=== PATIENT | female | born 1955 | race Caucasian/White ===

== ENCOUNTER 2019-01-24 05:27 | Inpatient (IN) | payer OTHER ==
[2019-01-24] VITALS (21 sets, daily range): BP systolic 114–176; BP diastolic 57–103
[~2019-01-24] VITALS: Ht 154.9 cm; Wt 79.3 kg
[2019-01-24] MEDS ORDERED: NITROGLYCERIN PREMIX 250 ML IV ONE (05:45)
[2019-01-24] MEDS ORDERED: HEPARIN for IV BOLUS 10,000 UNIT/10 ML VIAL. IV ONE (05:45)
[2019-01-24] MEDS ORDERED: fentaNYL PF VIAL 100 MCG/2 ML VIAL IV ONE ×2 (05:45→06:45)
[2019-01-24] MEDS ORDERED: LIDOCAINE 1% Multi-Dose 20 ML VIAL. ONE (05:48)
[2019-01-24] MEDS ORDERED: IODIXANOL 320 MG/ML 100 ML VIAL. ONE ×2 (05:48→06:36)
[2019-01-24] MEDS ORDERED: fentaNYL PF VIAL 100 MCG/2 ML VIAL ONE (05:51)
[2019-01-24] MEDS ORDERED: MIDAZOLAM HCL/PF 2 MG/2 ML VIAL. ONE (05:51)
[2019-01-24 05:56] LABS: BASO # 0.1 x10^3/uL (0.0-0.2); BASO % 1 % (0-3); EOS # 0.2 x10^3/uL (0.0-0.7); EOS % 2 % (0-3); HEMATOCRIT 43.9 % (36.0-47.0); HEMOGLOBIN 15.3 g/dL (12.0-15.5); LYMPH # 2.5 x10^3/uL (1.0-4.8); LYMPH % 30 % (24-48); MEAN CORPUSCULAR HEMOGLOBIN 32 pg (25-35); MEAN CORPUSCULAR HGB CONC 35 g/dL (31-37); MEAN CORPUSCULAR VOLUME 91 fL (79-100); MONO # 0.6 x10^3/uL (0.0-1.1); MONO % 8 % (0-9); NEUT # 5.1 x10^3uL (1.8-7.7); NEUT % 60 % (31-73); PLATELET COUNT 146 x10^3/uL (140-400); RED BLOOD COUNT 4.82 x10^6/uL (3.50-5.40); RED CELL DISTRIBUTION WIDTH 13.7 % (11.5-14.5); WHITE BLOOD COUNT 8.4 x10^3/uL (4.0-11.0)
[2019-01-24] MEDS ORDERED: AMIODARONE 900 MG in IV DEXTROSE 5% 500 ML IV ONE (06:00)
[2019-01-24] MEDS ORDERED: AMIODARONE 150 MG in IV DEXTROSE 5% 100ML 100 ML IV ONE (06:00)
[2019-01-24] MEDS ORDERED: AMIODARONE 150 MG/3 ML VIAL IVP ONE (06:00)
--- NOTE | 2019-01-24 06:00 | PHYS DOC ---
Adult General Chief Complaint Chief Complaint: CHEST PAIN-CARDIAC NATURE HPI HPI Patient is a 63 year old F BIBA WITH SEVERE CHEST PAIN PRESSURE AND CRAMPING, SUDDEN ONSET AT FOUR AM, GAVE FENTANYL IN ER WHICH DID HELP SOME. RADIATION TO SHOULDER AND JAW AND FEELING IT IN THE BACK WAS DIAPHORETIC BP IN 160S FOR MEDICS THEY GAVE ASPIRIN AND FENTANYL. CAME FROM ORIENT HX OF STROKE, NO PRIOR HX OF SC, DOES NOT TAKE ANY OF HER MEDICATIONS. Review of Systems Review of Systems CARY BY ACUITY Current Medications Current Medications Current Medications Medications (Trade) Dose Ordered Sig/Velvet Start Time Stop Time Status Last Admin Dose Admin Fentanyl Citrate (Fentanyl 2ml Vial) 50 mcg 1X ONCE 01/24/19 05:45 01/24/19 05:46 UNV Heparin Sodium (Porcine) (Heparin Sodium) 4,000 unit 1X ONCE 01/24/19 05:45 01/24/19 05:46 UNV 01/24/19 05:42 4,000 UNIT Nitroglycerin/ Dextrose 250 ml @ 0 mls/hr 1X ONCE 01/24/19 05:45 01/24/19 05:46 UNV Allergies Allergies Allergies Uncoded Allergies Type Severity Reaction Last Updated Verified Antibiotics Adverse Reaction Intermediate "ITCHING/HIVES" 01/24/19 Physical Exam Physical Exam Constitutional: Well developed, well nourished, no acute distress, non-toxic appearance. [] HENT: Normocephalic, atraumatic, bilateral external ears normal, oropharynx mois t, no oral exudates, nose normal. [] Eyes: PERRLA, EOMI, conjunctiva normal, no discharge. [] Neck: Normal range of motion, no tenderness, supple, no stridor. [] Cardiovascular:Heart rate regular rhythm, no murmur [] Lungs & Thorax: Bilateral breath sounds clear to auscultation [] Abdomen: Bowel sounds normal, soft, no tenderness, no masses, no pulsatile masses. [] Skin: Warm, dry, no erythema, no rash. [] Back: No tenderness, no CVA tenderness. [] Extremities: No tenderness, no cyanosis, no clubbing, ROM intact, no edema. [] Neurologic: Alert and oriented X 3, normal motor function, normal sensory function, no focal deficits noted. [] Psychologic: Affect normal, judgement normal, mood normal. [] EKG EKG [] Interpretation Time: EKG FROM THE FIELD SHOWS ST ELEV INFERIOR LEADS WITH RECIPROCAL ST DEPRESSION AT THE LATERAL LEADS LARGE ST ELEV ACTIVATED STEMI AT 517 EKG AT MULTIPLE EKGS TIMED 0531, 0534, 551 ALL SHOWED VARIOUS DEGREES OF ST ELEV INFERIOR LEADS Radiology/Procedures Radiology/Procedures [] Course & Med Decision Making Course & Med Decision Making Pertinent Labs and Imaging studies reviewed. (See chart for details) STEMI INFERIOR WALL BP 200'S. []IN ER PT AT 545 AM HAD RUNS OF NONSUSTAINED VTACH, ORDERED AMIO, IT BROKE. 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 D/W CRAIG PRIOR TO THE PATIENT BEING IN THE ER AT 520 AM. 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 D/W DAUGHTER AT BEDSIDE. D/W ROJAS AT 550 Critical care time was 45 minutes exclusive of procedures. Dragon Disclaimer Dragon Disclaimer This electronic medical record was generated, in whole or in part, using a voice recognition dictation system. Departure Departure Impression: Primary Impression: STEMI (ST elevation myocardial infarction) Disposition: ADMITTED INPATIENT Admitting Physician: Aspen Garcia Condition: CRITICAL Referrals: LUIS MIGUEL MARTINEZ MD (PCP) ISAAC GILLIS MD Jan 24, 2019 06:00
[2019-01-24 06:04] LABS: PROTHROMBIN TIME PATIENT 13.5 SEC (11.7-14.0)
[2019-01-24 06:09] LABS: CREATININE 0.6 mg/dL (0.6-1.0); GFR 100.6
[2019-01-24 06:15] LABS: ALBUMIN 3.2 g/dL (3.4-5.0); TOTAL BILIRUBIN 0.4 mg/dL (0.2-1.0); TOTAL PROTEIN 6.4 g/dL (6.4-8.2)
[2019-01-24] MEDS ORDERED: BIVALIRUDIN 250 MG VIAL. IV ONE ×2 (06:17→06:45)
[2019-01-24] MEDS ORDERED: CLOPIDOGREL BISULFATE 75 MG TABLET ONE (06:36)
--- NOTE | 2019-01-24 06:41 | EKG ---
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
--- NOTE | 2019-01-24 06:42 | EKG ---
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
--- NOTE | 2019-01-24 06:42 | EKG ---
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
[2019-01-24] MEDS ORDERED: MIDAZOLAM HCL/PF 2 MG/2 ML VIAL. IV ONE (06:45)
[2019-01-24] MEDS ORDERED: NITROGLYCERIN 200 MCG/2 ML SYRINGE FOR CATH/VASC LAB. ICAR ONE (06:45)
[2019-01-24] MEDS ORDERED: IODIXANOL 320 MG/ML 100 ML VIAL. IART ONE (06:45)
[2019-01-24] MEDS ORDERED: LIDOCAINE 1% Multi-Dose 20 ML VIAL. INJ ONE (06:45)
[2019-01-24] MEDS ORDERED: IV 1/2 NORMAL SALINE 1,000 ML IV SCH (06:53)
--- NOTE | 2019-01-24 06:53 | PDOC ---
MODERATE SEDATION ASSESSMENT RISKS/ALTERNATIVES Risks/Alternatives Risks and alternatives of this type of sedation and procedure discussed with: RISK/ALTERNATIVES: Patient H & P ON CHART H & P H & P on chart and reviewed for co-morbid conditions and appropriate labs. H&P ON CHART: Yes STATUS PREG STATUS ASSESSED: N/A MEDS/ALLERGIES REVIEWED Meds/Allergies Reviewed Medications and Allergies including time and route of recently administered narcotics and sedatives. MEDS/ALLERGIES REVIEWED: Yes ASA RATING ASA RATING: III AIRWAY ASSESSMENT Airway Assessment Airway patency, oral function limitations, presence of caps, crowns, dentures, partials, and ability to extend neck assessed. AIRWAY ASSESSMENT: Yes MALLAMPATI SCORE MALLAMPATI SCORE: II PRE-SEDATION ASSESSMENT PRE-SEDATION ASSESSMENT: Yes LINDSAY SRINIVASAN MD Jan 24, 2019 06:53
--- NOTE | 2019-01-24 06:53 | PDOC2 ---
CONSULT Date of Consult Date of Consult DATE: 01/24/19 TIME: 06:53 Reason for Consult Reason for Consult: Acute myocardial infarction Referring Physician Referring Physician: Dr. Kumar Identification/Chief Complaint Chief Complaint Chest pain History of Present Illness Reason for Visit: 63-year-old female without any previous cardiac history presented with retrosternal chest pressure radiating to left shoulder and jaw, associated with diaphoresis starting at 4 AM today. The pain improved significantly with aspirin, fentanyl and nitroglycerin and was chest pain-free upon my exam. She denied any orthopnea/PND, palpitations or syncope. She was found to have recurrent episodes of nonsustained ventricular tachycardia in ED and was started on amiodarone infusion in addition to intravenous nitroglycerin infusion for elevated blood pressure. Past Medical History Cardiovascular: No pertinent hx Family History Family History Positive for coronary artery disease Social History 1 pack per day Drugs: None Current Medications Current Medications Current Medications Heparin Sodium (Porcine) (Heparin Sodium) 4,000 unit 1X ONCE IV Last administered on 01/24/19at 05:42; Start 01/24/19 at 05:45; Stop 01/24/19 at 05:50; Status DC Fentanyl Citrate (Fentanyl 2ml Vial) 50 mcg 1X ONCE IV Last administered on 01/24/19at 05:45; Start 01/24/19 at 05:45; Stop 01/24/19 at 05:50; Status DC Nitroglycerin/ Dextrose 250 ml @ 0 mls/hr 1X ONCE IV Last administered on 01/24/19at 05:48; Start 01/24/19 at 05:45; Stop 01/24/19 at 05:50; Status DC Iodixanol (Visipaque 320) 100 ml STK-MED ONCE .ROUTE ; Start 01/24/19 at 05:48; Stop 01/24/19 at 05:49; Status DC Lidocaine HCl (Lidocaine 1% 20ml Vial) 20 ml STK-MED ONCE .ROUTE ; Start 01/24/19 at 05:48; Stop 01/24/19 at 05:49; Status DC Heparin Sodium/ Sodium Chloride 500 ml @ As Directed STK-MED ONCE .ROUTE ; Start 01/24/19 at 05:48; Stop 01/24/19 at 05:49; Status DC Amiodarone HCl 900 mg/Dextrose 518 ml @ 33 mls/hr 1X ONCE IV ; Start 01/24/19 at 06:00; Stop 01/24/19 at 21:41 Fentanyl Citrate (Fentanyl 2ml Vial) 100 mcg STK-MED ONCE .ROUTE ; Start 01/24/19 at 05:51; Stop 01/24/19 at 05:52; Status DC Midazolam HCl (Versed) 2 mg STK-MED ONCE .ROUTE ; Start 01/24/19 at 05:51; Stop 01/24/19 at 05:52; Status DC Amiodarone HCl 150 mg/Dextrose 103 ml @ 618 mls/hr 1X ONCE IV ; Start 01/24/19 at 06:00; Stop 01/24/19 at 06:09; Status UNV Amiodarone HCl (Cordarone) 150 mg ONCE ONCE IVP ; Start 01/24/19 at 06:00; Stop 01/24/19 at 06:12; Status DC Bivalirudin (Angiomax) 250 mg STK-MED ONCE IV ; Start 01/24/19 at 06:17; Stop 01/24/19 at 06:18; Status DC Heparin Sodium/ Sodium Chloride (HEPARIN for ARTERIAL LINE FLUSH) 1,000 unit 1X ONCE IART ; Start 01/24/19 at 06:45; Stop 01/24/19 at 06:46; Status DC Midazolam HCl (Versed) 2 mg 1X ONCE IV ; Start 01/24/19 at 06:45; Stop 01/24/19 at 06:46; Status DC Fentanyl Citrate (Fentanyl 2ml Vial) 100 mcg 1X ONCE IV ; Start 01/24/19 at 06:45; Stop 01/24/19 at 06:46; Status DC Iodixanol (Visipaque 320) 100 ml 1X ONCE IART ; Start 01/24/19 at 06:45; Stop 01/24/19 at 06:46; Status DC Bivalirudin (Angiomax) 250 mg 1X ONCE IV ; Start 01/24/19 at 06:45; Stop 01/24/19 at 06:46; Status DC Lidocaine HCl (Lidocaine 1% 20ml Vial) 20 ml 1X ONCE INJ ; Start 01/24/19 at 06:45; Stop 01/24/19 at 06:46; Status DC Nitroglycerin (Nitroglycerin) 200 mcg 1X ONCE ICAR ; Start 01/24/19 at 06:45; Stop 01/24/19 at 06:46; Status DC Iodixanol (Visipaque 320) 100 ml STK-MED ONCE .ROUTE ; Start 01/24/19 at 06:36; Stop 01/24/19 at 06:37; Status DC Clopidogrel Bisulfate (Plavix) 75 mg STK-MED ONCE .ROUTE ; Start 01/24/19 at 06:36; Stop 01/24/19 at 06:37; Status DC Allergies Allergies: Uncoded Allergies: Antibiotics (Adverse Reaction, Intermediate, "ITCHING/HIVES", 01/24/19) ROS PSYCHOLOGICAL ROS: No: Hallucinations Eyes: No Loss of vision HEENT: No: Epistaxis Respiratory: No: Hemoptysis Cardiovascular: yes Chest Pain Gastrointestinal: No Melena Genitourinary: No Hematuria Neurological: No Seizures Skin: No Rash Physical Exam General: Alert, Oriented X3 HEENT: Atraumatic, PERRLA Lungs: Clear to auscultation Heart: Regular rate Abdomen: Soft, No tenderness Psych/Mental Status: Mood NL Vitals VITALS Vital Signs Date Time Temp Pulse Resp B/P (MAP) Pulse Ox O2 Delivery O2 Flow Rate FiO2 01/24/19 05:52 90 10 179/92 (121) 94 Nasal Cannula 3.0 01/24/19 05:27 98.5 98.5 Labs Labs Laboratory Tests Test 01/24/19 05:43 White Blood Count 8.4 x10^3/uL (4.0-11.0) Red Blood Count 4.82 x10^6/uL (3.50-5.40) Hemoglobin 15.3 g/dL (12.0-15.5) Hematocrit 43.9 % (36.0-47.0) Mean Corpuscular Volume 91 fL (79-100) Mean Corpuscular Hemoglobin 32 pg (25-35) Mean Corpuscular Hemoglobin Concent 35 g/dL (31-37) Red Cell Distribution Width 13.7 % (11.5-14.5) Platelet Count 146 x10^3/uL (140-400) Neutrophils (%) (Auto) 60 % (31-73) Lymphocytes (%) (Auto) 30 % (24-48) Monocytes (%) (Auto) 8 % (0-9) Eosinophils (%) (Auto) 2 % (0-3) Basophils (%) (Auto) 1 % (0-3) Neutrophils # (Auto) 5.1 x10^3uL (1.8-7.7) Lymphocytes # (Auto) 2.5 x10^3/uL (1.0-4.8) Monocytes # (Auto) 0.6 x10^3/uL (0.0-1.1) Eosinophils # (Auto) 0.2 x10^3/uL (0.0-0.7) Basophils # (Auto) 0.1 x10^3/uL (0.0-0.2) Prothrombin Time 13.5 SEC (11.7-14.0) Prothromb Time International Ratio 1.1 (0.8-1.1) Sodium Level 137 mmol/L (136-145) Potassium Level 4.0 mmol/L (3.5-5.1) Chloride Level 102 mmol/L (98-107) Carbon Dioxide Level 23 mmol/L (21-32) Anion Gap 12 (6-14) Blood Urea Nitrogen 14 mg/dL (7-20) Creatinine 0.6 mg/dL (0.6-1.0) Estimated GFR (Cockcroft-Gault) 100.6 BUN/Creatinine Ratio 23 (6-20) Glucose Level 379 mg/dL (70-99) Calcium Level 9.0 mg/dL (8.5-10.1) Total Bilirubin 0.4 mg/dL (0.2-1.0) Aspartate Amino Transf (AST/SGOT) 19 U/L (15-37) Alanine Aminotransferase (ALT/SGPT) 20 U/L (14-59) Alkaline Phosphatase 51 U/L (46-116) Troponin I Quantitative < 0.017 ng/mL (0.000-0.055) HU-Krz-H-Type Natriuretic Peptide 157 pg/mL (0-124) Total Protein 6.4 g/dL (6.4-8.2) Albumin 3.2 g/dL (3.4-5.0) Albumin/Globulin Ratio 1.0 (1.0-1.7) Laboratory Tests Test 01/24/19 05:43 White Blood Count 8.4 x10^3/uL (4.0-11.0) Red Blood Count 4.82 x10^6/uL (3.50-5.40) Hemoglobin 15.3 g/dL (12.0-15.5) Hematocrit 43.9 % (36.0-47.0) Mean Corpuscular Volume 91 fL (79-100) Mean Corpuscular Hemoglobin 32 pg (25-35) Mean Corpuscular Hemoglobin Concent 35 g/dL (31-37) Red Cell Distribution Width 13.7 % (11.5-14.5) Platelet Count 146 x10^3/uL (140-400) Neutrophils (%) (Auto) 60 % (31-73) Lymphocytes (%) (Auto) 30 % (24-48) Monocytes (%) (Auto) 8 % (0-9) Eosinophils (%) (Auto) 2 % (0-3) Basophils (%) (Auto) 1 % (0-3) Neutrophils # (Auto) 5.1 x10^3uL (1.8-7.7) Lymphocytes # (Auto) 2.5 x10^3/uL (1.0-4.8) Monocytes # (Auto) 0.6 x10^3/uL (0.0-1.1) Eosinophils # (Auto) 0.2 x10^3/uL (0.0-0.7) Basophils # (Auto) 0.1 x10^3/uL (0.0-0.2) Prothrombin Time 13.5 SEC (11.7-14.0) Prothromb Time International Ratio 1.1 (0.8-1.1) Sodium Level 137 mmol/L (136-145) Potassium Level 4.0 mmol/L (3.5-5.1) Chloride Level 102 mmol/L (98-107) Carbon Dioxide Level 23 mmol/L (21-32) Anion Gap 12 (6-14) Blood Urea Nitrogen 14 mg/dL (7-20) Creatinine 0.6 mg/dL (0.6-1.0) Estimated GFR (Cockcroft-Gault) 100.6 BUN/Creatinine Ratio 23 (6-20) Glucose Level 379 mg/dL (70-99) Calcium Level 9.0 mg/dL (8.5-10.1) Total Bilirubin 0.4 mg/dL (0.2-1.0) Aspartate Amino Transf (AST/SGOT) 19 U/L (15-37) Alanine Aminotransferase (ALT/SGPT) 20 U/L (14-59) Alkaline Phosphatase 51 U/L (46-116) Troponin I Quantitative < 0.017 ng/mL (0.000-0.055) MD-Uzs-M-Type Natriuretic Peptide 157 pg/mL (0-124) Total Protein 6.4 g/dL (6.4-8.2) Albumin 3.2 g/dL (3.4-5.0) Albumin/Globulin Ratio 1.0 (1.0-1.7) Assessment/Plan Assessment/Plan 1. Aborted acute inferior wall ST elevation myocardial infarction. EKG from EMS showed ST elevations in leads III and aVF. Upon presentation to the cardiac Tissue Technician, she was chest pain-free with resolution of ST elevations. Patient was given aspirin, heparin in ED. We will proceed with emergent cardiac catheterization and possible primary PCI. Risks and benefits were explained and she is agreeable. Start statins post procedure. 2. Accelerated hypertension: Start beta blockers and losartan for better control 3. Nonsustained ventricular tachycardia most probably ischemic in etiology. She is presently on amiodarone infusion. We will stop this after PCI and monitor te lemetry. Check 2-D echo to assess LV systolic function. We will also check magnesium level. Thank you for your consultation. LINDSAY SRINIVASAN MD Jan 24, 2019 06:53
[2019-01-24] MEDS ORDERED: fentaNYL PF VIAL 100 MCG/2 ML VIAL IV PRN (07:00)
[2019-01-24] MEDS ORDERED: ACETAMINOPHEN 325 MG TABLET. PO PRN (07:00)
[2019-01-24] MEDS ORDERED: CLOPIDOGREL BISULFATE 75 MG TABLET PO ONE (07:00)
--- NOTE | 2019-01-24 07:27 | CARD ---
MR#: [id number] Date of Study: 01/24/2019 Ordering Physician: LINDSAY CLEANING, Referring Physician: HARPREET XIE, Tech: RT Bethanie (R) APPROVED REPORT Technologist: RT Bethanie (R) ARETHA Nurse: Krys Negron R.N. Procedure(s) performed: 1. Left heart catheterization, selective coronary angiography and left ventr iculography 2. Successful PCI/drug eluting stent placement to the dominant left circumflex artery and balloon PT CA to the obtuse marginal branch mod sed 60 Min fluoro time 11.5 dap 123.71 Gycm2 contrast 240ml INDICATION The indication(s) include : 63-year-old female presented with chest pain and was found to have ST fina vations in lead III and aVF on initial EKG consistent with acute inferior wall ST elevation myocardia l infarction. However, on presentation to the cardiac Open Hearth Melter patient had resolution of chest pain a s well as ST elevations, consistent with aborted STEMI.. CSHA Clinical Frailty Scale CSHA Clinical Frailty Scale: Mildly Frail Heart Failure Heart Failure: No PROCEDURE NARRATIVE After explaining the risks, benefits and alternative options, informed consent was obtained from carmelita ent. Patient was brought to the cardiac Open Hearth Melter and her right groin was prepped and draped in the us ual fashion. 20 mL of 2% lidocaine was infiltrated into the skin and subcutaneous tissues for local a nesthesia. Arterial access was obtained in the right common femoral artery and a 6 Singaporean sheath was inserted. 6 Singaporean JL4 and 6 Singaporean JR4 catheters were used to perform selective angiography of the l eft and right coronary arteries. 6 Singaporean pigtail catheter was used to perform left ventriculography at the end of procedure. The following findings were noted. FINDINGS 1. Hemodynamics: Elevated left ventricular end-diastolic pressure of 37 mmHg consistent with acute diastolic heart failure. No pullback gradient across the aortic valve. 2. Left ventriculography: Inferoapical wall hypokinesis with ejection fraction estimated at 55%. No significant mitral regurgitation was seen. 3. Coronary angiography: a. The left main coronary artery arose from the left sinus of Valsalva, gave rise to the left anteri or descending and left circumflex arteries and did not show any significant stenosis. b. The left anterior descending artery showed 30% stenosis in the ostial segment. c. The left circumflex artery was a large and dominant vessel that showed 90% bifurcation lesion inv olving the mid to distal segment and origin of the third obtuse marginal branch which is a medium walter iber vessel. This is most probably the culprit lesion since patient had ST elevations during interven tion on this lesion. d. The right coronary artery was a small and nondominant vessel that showed 90% stenosis in the mids egment. INTERVENTION The left main coronary artery was engaged with a 6 Singaporean EBU 3.5 guide catheter and the stenosis in the mid to distal segment of the dominant left circumflex artery was crossed with a 0.014 inch InsureWorx Pro water guidewire. This was predilated with a 2.5 x 12 mm trek balloon following which this was suc cessfully treated with a 2.5 x 22 mm resolute anayeli drug-eluting stent. The stent struts were then analyst microbiology lab ssed into the third obtuse marginal branch and the struts and proximal segment of the obtuse marginal branch were dilated with a 2.5 x 8 mm noncompliant NC trek balloon. Follow-up angiography showed res olution of the stenosis to 0% with NELL-3 distal flow. Patient tolerated the procedure well. Hemostas is was achieved using Angio-Seal. There were no immediate complications. NELL Flow NELL Flow (Pre-Intervention): NELL-2 NELL Flow (Post-Intervention): NELL-3 Conclusion 1. 90% bifurcation lesion involving dominant left circumflex artery and third obtuse marginal branch, the culprit vessel for patient's aborted inferior wall STEMI. The right coronary artery was a small and nondominant vessel showing 90% stenosis in the midsegment. 2. Successful PCI/drug eluting stent placement to the left circumflex artery and balloon PTCA to the obtuse marginal branch. 3. Inferoapical wall hypokinesis with ejection fraction estimated at 55% Recommendations 1. Aspirin 325 mg daily 2. Plavix 75 mg daily for preferably one year 3. Cardiovascular risk factor modification including smoking cessation Signed by : Lindsay Cleaning, Electronically Approved : 01/24/2019 07:27:10
--- NOTE | 2019-01-24 08:13 | RAD ---
Examination: PORTABLE CHEST 1V History: chest pain and cough
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 Heart size and pulmonary vasculature are normal. No infiltrate or pleural effusion. No pneumothorax with the patient supine limiting assessment. No acute bony process. Impression: No active disease. Electronically signed by: Bryon Kelsey MD (01/24/2019 8:10 AM) [facility]
[2019-01-24] MEDS ORDERED: ONDANSETRON PF 4 MG/2 ML VIAL. IV PRN (08:15)
[2019-01-24] MEDS ORDERED: ONDANSETRON ODT 4 MG TAB.RAPDIS. PO PRN (08:15)
--- NOTE | 2019-01-24 08:44 | NUR ---
ADMISSION: Pt arrived to 103 @ 0720 from hemodialysis lab technician. Pt A&Ox4, SR on monitor. Angiomax and 1/2 NS infusing. Sister and and three daughters at bedside assisting pt in admission questions. See vascular assessment. Pt decided on DNR/DNI code status. Pt initially refusing cardiac medications Dr. Cleaning ordered. Dr. Cleaning spoke with pt at bedside and explained risks and benefits of medications ordered. Pt gave the okay to take the medications.
[2019-01-24] MEDS: METOPROLOL TART IMMED RELEASE 25 MG TABLET. PO SCH ×2 (08:48→21:19)
[2019-01-24] MEDS ORDERED: LOSARTAN POTASSIUM 50 MG TABLET. PO SCH (09:00)
--- NOTE | 2019-01-24 10:24 | PDOC1 ---
History and Physical Date of Admission Date of Admission DATE: 01/24/19 TIME: 10:20 Identification/Chief Complaint Chief Complaint cp Source Source: Caregiver, Chart review, Patient History of Present Illness History of Present Illness 63-year-old white female obese 35, borderline diabetic but chose not to take meds, does not take any meds at home, chest pain left-sided woke her up from sleep 4 AM. Nausea, SOA< maybe diaphoresis, STEMI on EKG. Underwent stat LHC and successful PCI/drug eluting stent placement to the dominant left circumflex artery and balloon PTCA to the obtuse marginal branch. Seen in ICU, rt groin looks good, Still weak, fuzzy on the details. Multiple fam members at bedside Past Medical History Cardiovascular: No pertinent hx Pulmonary: No pertinent hx GI: No pertinent hx Heme/Onc: No pertinent hx Hepatobiliary: No pertinent hx Psych: No pertinent hx Rheumatologic: No pertinent hx Infectious disease: No pertinent hx ENT: No pertinent hx Renal/: No pertinent hx Endocrine: No pertinent hx Dermatology: No pertinent hx Past Surgical History Past Surgical History: No pertinent history Family History Family History: Hypertension Social History Smoke: 1 pack per day ALCOHOL: none Drugs: None Current Medications Current Medications Current Medications Heparin Sodium (Porcine) (Heparin Sodium) 4,000 unit 1X ONCE IV Last administered on 01/24/19at 05:42; Start 01/24/19 at 05:45; Stop 01/24/19 at 05: 50; Status DC Fentanyl Citrate (Fentanyl 2ml Vial) 50 mcg 1X ONCE IV Last administered on 01/24/19at 05:45; Start 01/24/19 at 05:45; Stop 01/24/19 at 05:50; Status DC Nitroglycerin/ Dextrose 250 ml @ 0 mls/hr 1X ONCE IV Last administered on 01/24/19at 05:48; Start 01/24/19 at 05:45; Stop 01/24/19 at 05:50; Status DC Iodixanol (Visipaque 320) 100 ml STK-MED ONCE .ROUTE ; Start 01/24/19 at 05:48; Stop 01/24/19 at 05:49; Status DC Lidocaine HCl (Lidocaine 1% 20ml Vial) 20 ml STK-MED ONCE .ROUTE ; Start 01/24/19 at 05:48; Stop 01/24/19 at 05:49; Status DC Heparin Sodium/ Sodium Chloride 500 ml @ As Directed STK-MED ONCE .ROUTE ; Start 01/24/19 at 05:48; Stop 01/24/19 at 05:49; Status DC Amiodarone HCl 900 mg/Dextrose 518 ml @ 33 mls/hr 1X ONCE IV ; Start 01/24/19 at 06:00; Stop 01/24/19 at 06:53; Status DC Fentanyl Citrate (Fentanyl 2ml Vial) 100 mcg STK-MED ONCE .ROUTE ; Start 01/24/19 at 05:51; Stop 01/24/19 at 05:52; Status DC Midazolam HCl (Versed) 2 mg STK-MED ONCE .ROUTE ; Start 01/24/19 at 05:51; Stop 01/24/19 at 05:52; Status DC Amiodarone HCl 150 mg/Dextrose 103 ml @ 618 mls/hr 1X ONCE IV ; Start 01/24/19 at 06:00; Stop 01/24/19 at 06:09; Status UNV Amiodarone HCl (Cordarone) 150 mg ONCE ONCE IVP ; Start 01/24/19 at 06:00; Stop 01/24/19 at 06:12; Status DC Bivalirudin (Angiomax) 250 mg STK-MED ONCE IV ; Start 01/24/19 at 06:17; Stop 01/24/19 at 06:18; Status DC Heparin Sodium/ Sodium Chloride (HEPARIN for ARTERIAL LINE FLUSH) 1,000 unit 1X ONCE IART Last administered on 01/24/19at 06:53; Start 01/24/19 at 06:45; Stop 01/24/19 at 06:46; Status DC Midazolam HCl (Versed) 2 mg 1X ONCE IV Last administered on 01/24/19at 06:56; Start 01/24/19 at 06:45; Stop 01/24/19 at 06:46; Status DC Fentanyl Citrate (Fentanyl 2ml Vial) 100 mcg 1X ONCE IV Last administered on 01/24/19at 06:56; Start 01/24/19 at 06:45; Stop 01/24/19 at 06:46; Status DC Iodixanol (Visipaque 320) 100 ml 1X ONCE IART Last administered on 01/24/19at 06:53; Start 01/24/19 at 06:45; Stop 01/24/19 at 06:46; Status DC Bivalirudin (Angiomax) 250 mg 1X ONCE IV Last administered on 01/24/19at 06:56; Start 01/24/19 at 06:45; Stop 01/24/19 at 06:46; Status DC Lidocaine HCl (Lidocaine 1% 20ml Vial) 20 ml 1X ONCE INJ Last administered on 01/24/19at 06:55; Start 01/24/19 at 06:45; Stop 01/24/19 at 06:46; Status DC Nitroglycerin (Nitroglycerin) 200 mcg 1X ONCE ICAR Last administered on 01/24/19at 06:54; Start 01/24/19 at 06:45; Stop 01/24/19 at 06:46; Status DC Iodixanol (Visipaque 320) 100 ml STK-MED ONCE .ROUTE ; Start 01/24/19 at 06:36; Stop 01/24/19 at 06:37; Status DC Clopidogrel Bisulfate (Plavix) 75 mg STK-MED ONCE .ROUTE ; Start 01/24/19 at 06:36; Stop 01/24/19 at 06:37; Status DC Clopidogrel Bisulfate (Plavix) 600 mg 1X ONCE PO Last administered on 01/24/19at 06:57; Start 01/24/19 at 07:00; Stop 01/24/19 at 07:01; Status DC Sodium Chloride 1,000 ml @ 100 mls/hr Q10H IV Last administered on 01/24/19at 07:13; Start 01/24/19 at 06:53; Stop 01/24/19 at 16:52 Aspirin (Ecotrin) 325 mg DAILYWBKFT PO ; Start 01/25/19 at 08:00 Clopidogrel Bisulfate (Plavix) 75 mg DAILYWBKFT PO ; Start 01/25/19 at 08:00 Metoprolol Tartrate (Lopressor) 25 mg BID PO Last administered on 01/24/19at 08:48; Start 01/24/19 at 09:00 Losartan Potassium (Cozaar) 50 mg DAILY PO Last administered on 01/24/19at 08:48; Start 01/24/19 at 09:00 Atorvastatin Calcium (Lipitor) 40 mg QHS PO ; Start 01/24/19 at 21:00 Acetaminophen (Tylenol) 650 mg PRN Q6HRS PRN PO MILD PAIN / TEMP; Start 01/24/19 at 07:00 Fentanyl Citrate (Fentanyl 2ml Vial) 50 mcg PRN Q1HR PRN IV MODERATE OR SEVERE PAIN; Start 01/24/19 at 07:00 Ondansetron HCl (Zofran) 4 mg PRN Q6HRS PRN IV NAUSEA/VOMITING; Start 01/24/19 at 08:15 Ondansetron HCl (Zofran Odt) 4 mg PRN Q6HRS PRN PO NAUSEA/VOMITING; Start 01/24/19 at 08:15 Allergies Allergies: Coded Allergies: prednisone (Verified Allergy, Severe, 01/24/19) Uncoded Allergies: Antibiotics (Adverse Reaction, Intermediate, "ITCHING/HIVES", 01/24/19) ROS Review of System As per history of present illness, the rest of ROS 14 point negative Physical Exam General: Alert, Oriented X3, Cooperative, No acute distress HEENT: Atraumatic, PERRLA, EOMI Lungs: Clear to auscultation, Normal air movement Heart: S1S2, RRR, no thrills, no rubs, no gallops, no murmurs Cardiovascular: S1, S2 Breasts: Normal, Rt breast nml w/o mass, Lt breast nml w/o mass, Nipples normal Abdomen: Normal bowel sounds, Soft, No tenderness, No hepatosplenomegaly, No masses Rectal Exam: not examined PELVIC: Nml ext genitalia, Other (dressing right groin, dry no hematoma) Extremities: No clubbing, No cyanosis, No edema, Normal pulses, No tende rness/swelling Skin: No rashes, No breakdown, No significant lesion Neuro: Normal gait, Normal speech, Strength at 5/5 X4 ext, Normal tone, Sensation intact, Cranial nerves 3-12 NL, Reflexes 2+ Psych/Mental Status: Mental status NL, Mood NL Vitals Vitals Vital Signs Date Time Temp Pulse Resp B/P (MAP) Pulse Ox O2 Delivery O2 Flow Rate FiO2 01/24/19 09:00 86 22 126/64 (84) 93 Nasal Cannula 2.0 01/24/19 07:30 97.6 97.6 Labs Labs Laboratory Tests Test 01/24/19 05:43 01/24/19 09:05 White Blood Count 8.4 x10^3/uL (4.0-11.0) Red Blood Count 4.82 x10^6/uL (3.50-5.40) Hemoglobin 15.3 g/dL (12.0-15.5) Hematocrit 43.9 % (36.0-47.0) Mean Corpuscular Volume 91 fL (79-100) Mean Corpuscular Hemoglobin 32 pg (25-35) Mean Corpuscular Hemoglobin Concent 35 g/dL (31-37) Red Cell Distribution Width 13.7 % (11.5-14.5) Platelet Count 146 x10^3/uL (140-400) Neutrophils (%) (Auto) 60 % (31-73) Lymphocytes (%) (Auto) 30 % (24-48) Monocytes (%) (Auto) 8 % (0-9) Eosinophils (%) (Auto) 2 % (0-3) Basophils (%) (Auto) 1 % (0-3) Neutrophils # (Auto) 5.1 x10^3uL (1.8-7.7) Lymphocytes # (Auto) 2.5 x10^3/uL (1.0-4.8) Monocytes # (Auto) 0.6 x10^3/uL (0.0-1.1) Eosinophils # (Auto) 0.2 x10^3/uL (0.0-0.7) Basophils # (Auto) 0.1 x10^3/uL (0.0-0.2) Prothrombin Time 13.5 SEC (11.7-14.0) Prothromb Time International Ratio 1.1 (0.8-1.1) Sodium Level 137 mmol/L (136-145) Potassium Level 4.0 mmol/L (3.5-5.1) Chloride Level 102 mmol/L (98-107) Carbon Dioxide Level 23 mmol/L (21-32) Anion Gap 12 (6-14) Blood Urea Nitrogen 14 mg/dL (7-20) Creatinine 0.6 mg/dL (0.6-1.0) Estimated GFR (Cockcroft-Gault) 100.6 BUN/Creatinine Ratio 23 (6-20) Glucose Level 379 mg/dL (70-99) Calcium Level 9.0 mg/dL (8.5-10.1) Total Bilirubin 0.4 mg/dL (0.2-1.0) Aspartate Amino Transf (AST/SGOT) 19 U/L (15-37) Alanine Aminotransferase (ALT/SGPT) 20 U/L (14-59) Alkaline Phosphatase 51 U/L (46-116) Troponin I Quantitative < 0.017 ng/mL (0.000-0.055) 0.825 ng/mL (0.000-0.055) IH-Oqm-Q-Type Natriuretic Peptide 157 pg/mL (0-124) Total Protein 6.4 g/dL (6.4-8.2) Albumin 3.2 g/dL (3.4-5.0) Albumin/Globulin Ratio 1.0 (1.0-1.7) Laboratory Tests Test 01/24/19 05:43 01/24/19 09:05 White Blood Count 8.4 x10^3/uL (4.0-11.0) Red Blood Count 4.82 x10^6/uL (3.50-5.40) Hemoglobin 15.3 g/dL (12.0-15.5) Hematocrit 43.9 % (36.0-47.0) Mean Corpuscular Volume 91 fL (79-100) Mean Corpuscular Hemoglobin 32 pg (25-35) Mean Corpuscular Hemoglobin Concent 35 g/dL (31-37) Red Cell Distribution Width 13.7 % (11.5-14.5) Platelet Count 146 x10^3/uL (140-400) Neutrophils (%) (Auto) 60 % (31-73) Lymphocytes (%) (Auto) 30 % (24-48) Monocytes (%) (Auto) 8 % (0-9) Eosinophils (%) (Auto) 2 % (0-3) Basophils (%) (Auto) 1 % (0-3) Neutrophils # (Auto) 5.1 x10^3uL (1.8-7.7) Lymphocytes # (Auto) 2.5 x10^3/uL (1.0-4.8) Monocytes # (Auto) 0.6 x10^3/uL (0.0-1.1) Eosinophils # (Auto) 0.2 x10^3/uL (0.0-0.7) Basophils # (Auto) 0.1 x10^3/uL (0.0-0.2) Prothrombin Time 13.5 SEC (11.7-14.0) Prothromb Time International Ratio 1.1 (0.8-1.1) Sodium Level 137 mmol/L (136-145) Potassium Level 4.0 mmol/L (3.5-5.1) Chloride Level 102 mmol/L (98-107) Carbon Dioxide Level 23 mmol/L (21-32) Anion Gap 12 (6-14) Blood Urea Nitrogen 14 mg/dL (7-20) Creatinine 0.6 mg/dL (0.6-1.0) Estimated GFR (Cockcroft-Gault) 100.6 BUN/Creatinine Ratio 23 (6-20) Glucose Level 379 mg/dL (70-99) Calcium Level 9.0 mg/dL (8.5-10.1) Total Bilirubin 0.4 mg/dL (0.2-1.0) Aspartate Amino Transf (AST/SGOT) 19 U/L (15-37) Alanine Aminotransferase (ALT/SGPT) 20 U/L (14-59) Alkaline Phosphatase 51 U/L (46-116) Troponin I Quantitative < 0.017 ng/mL (0.000-0.055) 0.825 ng/mL (0.000-0.055) XL-Asa-M-Type Natriuretic Peptide 157 pg/mL (0-124) Total Protein 6.4 g/dL (6.4-8.2) Albumin 3.2 g/dL (3.4-5.0) Albumin/Globulin Ratio 1.0 (1.0-1.7) VTE Prophylaxis Ordered VTE Prophylaxis Devices: Yes VTE Pharmacological Prophylaxi: Yes Assessment/Plan Assessment/Plan stemi s/p Successful PCI/drug eluting stent placement to the dominant left circumflex artery and balloon PTCA to the obtuse marginal branch Borderline DM, no meds PLAN: ICU,. STEMI post [facility] care Lipids, check hgba1c Dw Family FULL code NO home meds to reconcile HARPREET XIE MD Jan 24, 2019 10:24
[2019-01-24] MEDS ORDERED: HYDROcodone/APAP 5/325MG 1 TAB TABLET PO PRN (10:30)
[2019-01-24] MEDS ORDERED: NICOTINE 21MG PATCH. TD PRN (10:30)
[2019-01-24 11:01] LABS: CHOLESTEROL/HDL RATIO 6.6
--- NOTE | 2019-01-24 12:09 | CARD ---
MR#: [id number] Date of Study: 01/24/2019 Ordering Physician: LINDSAY SRINIVASAN, Referring Physician: HARPREET XIE Tech: Macie Paz [facility] APPROVED REPORT EXAM: Two-dimensional and M-mode echocardiogram with Doppler and color Doppler. Other Information Quality : Good INDICATION Acute Myocardial Infarction 2D DIMENSIONS RVDd2.9 (2.9-3.5cm)Left Atrium(2D)3.6 (1.6-4.0cm) IVSd1.3 (0.7-1.1cm)Aortic Root(2D)2.5 (2.0-3.7cm) LVDd4.1 (3.9-5.9cm)LVOT Diameter2.6 (1.8-2.4cm) PWd1.2 (0.7-1.1cm)LVDs3.3 (2.5-4.0cm) FS (%) 25.0 %LVEF(%)55.0 (>50%) Aortic Valve AoV Peak Khurram.154.5cm/sAoV VTI28.1cm AO Peak GR.9.5mmHgLVOT VTI 15.99cm AO Mean GR.6mmHgAVA (VTI)3.10cm2 Mitral Valve MV E Iyipxcfd32.0cm/sMV DECEL [id number] MV A Vkfkqizd326.6cm/sE/A Ratio0.8 TDI Lateral E' P. V3.35cm/sMedial E' P. V2.45cm/s E/Lateral E'27.2E/Medial E'37.1 Tricuspid Valve TR P. Cnerixau977ds/sRAP [id number] TR Peak Gr.73biOxTBBK27zpOu Pulmonary Vein S1 Lqkrieik26.5cm/sS2 Almodtlv60.45cm/s D2 Yayhegae14.4cm/s LEFT VENTRICLE The left ventricle is normal size. There is mild concentric left ventricular hypertrophy. The left ve ntricular systolic function is normal and the ejection fraction is within normal range. The Ejection Fraction is 55-60%. There is normal LV segmental wall motion. Transmitral Doppler flow pattern is Gra de I-abnormal relaxation pattern. RIGHT VENTRICLE The right ventricle is normal size. The right ventricular systolic function is normal. ATRIA The left atrium size is normal. The right atrium size is normal. The interatrial septum is intact wit h no evidence for an atrial septal defect or patent foramen ovale as noted on 2-D or Doppler imaging. AORTIC VALVE The aortic valve is calcified but opens well. Doppler and Color Flow revealed no significant aortic r egurgitation. There is no significant aortic valvular stenosis. MITRAL VALVE The mitral valve is normal in structure and function. There is no evidence of mitral valve prolapse. There is no mitral valve stenosis. Doppler and Color-flow revealed trace to mild mitral regurgitation . TRICUSPID VALVE The tricuspid valve is normal in structure and function. Doppler and Color Flow revealed trace to mil d tricuspid regurgitation. The PA pressure was estimated at 28 mmHg. There is no tricuspid valve sten osis. PULMONIC VALVE The pulmonic valve is not well visualized. Doppler and Color Flow revealed trace pulmonic valvular re gurgitation. There is no pulmonic valvular stenosis. GREAT VESSELS The aortic root is normal in size. The ascending aorta is normal in size. The IVC is normal in size a nd collapses >50% with inspiration. PERICARDIAL EFFUSION There is no evidence of significant pericardial effusion. Critical Notification Critical Value: No <Conclusion> The left ventricular systolic function is normal and the ejection fraction is within normal range. Th e Ejection Fraction is 55-60%. There is normal LV segmental wall motion. Signed by : Rajeev Pfeiffer, Electronically Approved : 01/24/2019 12:09:13
[2019-01-24] MEDS ORDERED: DIPHENHYDRAMINE/ZINC ACETATE 2%/0.1% TOPICAL CREAM 28GM TUBE. TP PRN (19:00)
--- NOTE | 2019-01-24 20:07 | NUR ---
Provided education on MRSA and gave education from [employer]. Pt refused to take atorvastatin. She would like to talk to the doctor about side effects in the morning.
[2019-01-24] MEDS ORDERED: ATORVASTATIN CALCIUM 20 MG TABLET PO SCH (21:00)
[2019-01-24] MEDS: NYSTATIN TOPICAL POWDER 15GM BOTTLE. TP SCH (21:20)
[2019-01-25] VITALS (8 sets, daily range): BP systolic 133–170; BP diastolic 63–93
[2019-01-25 00:18] LABS: HEMOGLOBIN A1C 12.3 % (4.8-5.6)
[2019-01-25 06:00] LABS: CALCIUM 8.4 mg/dL (8.5-10.1); CREATININE 0.6 mg/dL (0.6-1.0); GFR 100.6; POTASSIUM 3.5 mmol/L (3.5-5.1)
[2019-01-25] MEDS ORDERED: ASPIRIN ENTERIC COATED 325 MG TABLET.DR. PO SCH (08:00)
[2019-01-25] MEDS ORDERED: CLOPIDOGREL BISULFATE 75 MG TABLET PO SCH (08:00)
[2019-01-25] MEDS ORDERED: glyBURIDE 1.25 MG TABLET PO SCH (08:15)
[2019-01-25] MEDS ORDERED: DEXTROSE 50% 25 GM / 50ML DISP.SYRIN. IV PRN (08:15)
[2019-01-25] MEDS ORDERED: metFORMIN 500 MG TABLET PO SCH (08:15)
[2019-01-25] MEDS: NYSTATIN TOPICAL POWDER 15GM BOTTLE. TP SCH (08:58)
[2019-01-25] MEDS: METOPROLOL TART IMMED RELEASE 25 MG TABLET. PO SCH (08:58)
[2019-01-25] MEDS ORDERED: INSULIN LISPRO 300 UNITS/3 ML INSULN.PEN. SQ SCH (09:00)
[2019-01-25] MEDS ORDERED: LOSARTAN POTASSIUM 50 MG TABLET. PO SCH (09:00)
--- NOTE | 2019-01-25 09:12 | NUR ---
IP: Pt is mrsa screen + requiring contact precautions.
--- NOTE | 2019-01-25 09:14 | PDOC ---
MARTINEZ YANG [employer] 01/25/19 0914: CARDIO Progress Notes Date and Time Date of Service 01/25/2019 Time of Evaluation 0900 Subjective Subjective: No Chest Pain, No shortness of breath, No Palpitations Vitals Vitals Vital Signs Date Time Temp Pulse Resp B/P (MAP) Pulse Ox O2 Delivery O2 Flow Rate FiO2 01/25/19 06:29 92 18 155/65 (95) 95 Room Air 01/25/19 04:27 98.1 98.1 01/24/19 18:00 2.0 Weight Weight [ ] Input and Output Intake and Output Intake and Output 01/25/19 07:00 Intake Total 620 ml Output Total 1500 ml Balance -880 ml Intake Oral 620 ml Output Urine Total 1500 ml # Voids 2 Laboratory Labs Laboratory Tests Test 01/24/19 09:05 01/24/19 11:30 01/25/19 05:00 Troponin I Quantitative 0.825 ng/mL (0.000-0.055) 3.614 ng/mL (0.000-0.055) Sodium Level 137 mmol/L (136-145) Potassium Level 3.5 mmol/L (3.5-5.1) Chloride Level 103 mmol/L (98-107) Carbon Dioxide Level 24 mmol/L (21-32) Anion Gap 10 (6-14) Blood Urea Nitrogen 12 mg/dL (7-20) Creatinine 0.6 mg/dL (0.6-1.0) Estimated GFR (Cockcroft-Gault) 100.6 Glucose Level 318 mg/dL (70-99) Calcium Level 8.4 mg/dL (8.5-10.1) Physical Exam HEENT: Neck Supple W Full Motion Chest: Symmetric LUNGS: Clear to Auscultation Heart: S1S2, RRR (SR) Extremities: No Edema, No Calf Tenderness Neurology: alert, oriented, follow commands Other Exams right groin arteriotomy site intact, no swelling, erythema, neurovascular status to bilateral LE intact. Assessment Assessment 1. Aborted acute inferior wall STEMI: S/P PCI/ANT to LCx and PTCA to OM3. EF nml. 2. Accelerated hypertension: labile periods 3. NSVT: none further post reperfusion 4. DM2: not new (was on insulin in the past and decided treat without medications) A1C. 12.3 5. HLP 6. Obesity Recommendations 1. Continue metoprolol. Increase losartan. HBPM x1 wk and call if outside parameters. 2. 325 mg ECASA and plavix 3. Lipitor. DM meds per PCP 4. Cardiac rehab. Dietitian consult 5. Follow up in office on 02/23 at 2:45 PM LINDSAY SRINIVASAN MD 01/25/197: CARDIO Progress Notes Assessment Assessment Patient seen and examined. Agree with ICE GRINDER's assessment and plan. s/p PCI/ANT to dominant LCX, chest pain free No further arrhythmias on tele. EF normal on 2D echo Continue current meds and follow up in one month MARTINEZ YANG APRN Jan 25, 2019 09:14 LINDSAY SRINIVASAN MD Jan 25, 2019 21:07
[2019-01-25] MEDS ORDERED: ATOR20TA58 PO (09:27)
[2019-01-25] MEDS ORDERED: LOSA-73 PO (09:27)
[2019-01-25] MEDS ORDERED: CLOP75TA PO (09:27)
[2019-01-25] MEDS ORDERED: HYDR-2761 PO (09:27)
[2019-01-25] MEDS ORDERED: METO25TA4 PO (09:27)
[2019-01-25] MEDS ORDERED: ASPI325T11 PO (09:27)
[2019-01-25] MEDS ORDERED: METF500T PO (09:27)
[2019-01-25] MEDS ORDERED: GLYB1.252 PO (09:27)
[2019-01-25] MEDS ORDERED: INSU100I13 SQ (09:35)
--- NOTE | 2019-01-25 09:36 | PDOC3 ---
Discharge Summary Visit Information Date of Admission: Jan 24, 2019 Date of Discharge: Jan 25, 2019 Admitting Diagnosis Comment: stemi s/p Successful PCI/drug eluting stent placement to the dominant left circumflex artery and balloon PTCA to the obtuse marginal branch Dm 2 - hgba1c 12 Brief Hospital Course Allergies Allergies Coded Allergies Type Severity Reaction Last Updated Verified prednisone Allergy Severe 01/24/19 Yes I S O L A T I O N *CONTACT* Allergy Unknown 01/25/19 Yes Uncoded Allergies Type Severity Reaction Last Updated Verified Antibiotics Adverse Reaction Intermediate "ITCHING/HIVES" 01/24/19 Vital Signs Vital Signs Date Time Temp Pulse Resp B/P (MAP) Pulse Ox O2 Delivery O2 Flow Rate FiO2 01/25/19 08:58 97 133/66 01/25/19 06:29 18 95 Room Air 01/25/19 04:27 98.1 98.1 01/24/19 18:00 2.0 Lab Results Laboratory Tests Test 01/24/19 05:43 01/24/19 07:00 01/24/19 09:05 01/24/19 11:30 White Blood Count 8.4 x10^3/uL (4.0-11.0) Red Blood Count 4.82 x10^6/uL (3.50-5.40) Hemoglobin 15.3 g/dL (12.0-15.5) Hematocrit 43.9 % (36.0-47.0) Mean Corpuscular Volume 91 fL (79-100) Mean Corpuscular Hemoglobin 32 pg (25-35) Mean Corpuscular Hemoglobin Concent 35 g/dL (31-37) Red Cell Distribution Width 13.7 % (11.5-14.5) Platelet Count 146 x10^3/uL (140-400) Neutrophils (%) (Auto) 60 % (31-73) Lymphocytes (%) (Auto) 30 % (24-48) Monocytes (%) (Auto) 8 % (0-9) Eosinophils (%) (Auto) 2 % (0-3) Basophils (%) (Auto) 1 % (0-3) Neutrophils # (Auto) 5.1 x10^3uL (1.8-7.7) Lymphocytes # (Auto) 2.5 x10^3/uL (1.0-4.8) Monocytes # (Auto) 0.6 x10^3/uL (0.0-1.1) Eosinophils # (Auto) 0.2 x10^3/uL (0.0-0.7) Basophils # (Auto) 0.1 x10^3/uL (0.0-0.2) Prothrombin Time 13.5 SEC (11.7-14.0) Prothromb Time International Ratio 1.1 (0.8-1.1) Sodium Level 137 mmol/L (136-145) Potassium Level 4.0 mmol/L (3.5-5.1) Chloride Level 102 mmol/L (98-107) Carbon Dioxide Level 23 mmol/L (21-32) Anion Gap 12 (6-14) Blood Urea Nitrogen 14 mg/dL (7-20) Creatinine 0.6 mg/dL (0.6-1.0) Estimated GFR (Cockcroft-Gault) 100.6 BUN/Creatinine Ratio 23 (6-20) Glucose Level 379 mg/dL (70-99) Hemoglobin A1c 12.3 % (4.8-5.6) Calcium Level 9.0 mg/dL (8.5-10.1) Total Bilirubin 0.4 mg/dL (0.2-1.0) Aspartate Amino Transf (AST/SGOT) 19 U/L (15-37) Alanine Aminotransferase (ALT/SGPT) 20 U/L (14-59) Alkaline Phosphatase 51 U/L (46-116) Troponin I Quantitative < 0.017 ng/mL (0.000-0.055) 0.825 ng/mL (0.000-0.055) 3.614 ng/mL (0.000-0.055) MC-Oqr-O-Type Natriuretic Peptide 157 pg/mL (0-124) Total Protein 6.4 g/dL (6.4-8.2) Albumin 3.2 g/dL (3.4-5.0) Albumin/Globulin Ratio 1.0 (1.0-1.7) Triglycerides Level 355 mg/dL (0-150) Cholesterol Level 231 mg/dL (0-200) LDL Cholesterol, Calculated 125 mg/dL (0-100) VLDL Cholesterol, Calculated 71 mg/dL (0-40) Non-HDL Cholesterol Calculated 196 mg/dL (0-129) HDL Cholesterol 35 mg/dL (40-60) Cholesterol/HDL Ratio 6.6 Nasal Screen MRSA (PCR) Positive (Negative) Test 01/25/19 05:00 Sodium Level 137 mmol/L (136-145) Potassium Level 3.5 mmol/L (3.5-5.1) Chloride Level 103 mmol/L (98-107) Carbon Dioxide Level 24 mmol/L (21-32) Anion Gap 10 (6-14) Blood Urea Nitrogen 12 mg/dL (7-20) Creatinine 0.6 mg/dL (0.6-1.0) Estimated GFR (Cockcroft-Gault) 100.6 Glucose Level 318 mg/dL (70-99) Calcium Level 8.4 mg/dL (8.5-10.1) Laboratory Tests Test 01/24/19 11:30 01/25/19 05:00 Troponin I Quantitative 3.614 ng/mL (0.000-0.055) Sodium Level 137 mmol/L (136-145) Potassium Level 3.5 mmol/L (3.5-5.1) Chloride Level 103 mmol/L (98-107) Carbon Dioxide Level 24 mmol/L (21-32) Anion Gap 10 (6-14) Blood Urea Nitrogen 12 mg/dL (7-20) Creatinine 0.6 mg/dL (0.6-1.0) Estimated GFR (Cockcroft-Gault) 100.6 Glucose Level 318 mg/dL (70-99) Calcium Level 8.4 mg/dL (8.5-10.1) Brief Hospital Course Ms. Mccullough is a 63 old female admitted for STEMI underwent successful PCI to the above. She told me she was pre diabetic but multiple calls about blood sugars 300s. A1c is 12. Now she relays to me she was supposed to be on insulin. Creatinine okay, not alcoholic. I think it would benefit her also to start metformin 500 twice a day. Lantus 20 daily at bedtime. I had heavy instructions with her about follow-up PCP 4 weeks time about her diabetes. All Rx on chart Consuls performed cards Procedures performed PCI, 01/24/19 Discharge Information Condition at Discharge: Improved, Stable Follow Up: Weeks (cards as instrcuted, PCP 4 weeks re DM) Disposition/Orders: D/C to Home Scheduled Aspirin (Aspirin Ec) 325 Mg Tablet., 325 MG PO DAILYWBKFT for stemi MDD 1, #60 Prescribed by: HARPREET XIE on 01/25/19926 Atorvastatin Calcium (Atorvastatin Calcium) 20 Mg Tablet, 40 MG PO QHS for hyperlipid MDD 1, #60 Prescribed by: HARPREET XIE on 01/25/19926 Clopidogrel Bisulfate (Clopidogrel) 75 Mg Tablet, 75 MG PO DAILYWBKFT for stemi MDD 1, #30 Prescribed by: HARPREET XIE on 01/25/19926 Glyburide (Glyburide) 1.25 Mg Tablet, 1.25 MG PO BIDWMEALS for dm 2 MDD 1, #60 Prescribed by: HARPREET XIE on 01/25/19926 Info (No Known Medications Prior To Admisstion) Each, 1 EACH 1X for n/a, (Reported) Entered as Reported by: ROZINA LYONS on 01/25/19801 Last Taken: UNKNOWN on Unknown Date & Time Last Action: New Order on 01/25/19801 by ROZINA LYONS Losartan Potassium (Cozaar ) 50 Mg Tablet, 100 MG PO DAILY for htn MDD 1, #30 Prescribed by: HARPREET XIE on 01/25/19926 Metformin Hcl (Glucophage) 500 Mg Tablet, 500 MG PO BIDWMEALS for dm2 MDD 1, #60 Prescribed by: HARPREET XIE on 01/25/19926 Metoprolol Tartrate (Metoprolol Tartrate) 25 Mg Tablet, 25 MG PO BID for stemi MDD 1, #60 Prescribed by: HARPREET XIE on 01/25/19926 Scheduled PRN Hydrocodone Bit/Acetaminophen (Hydrocodone-Apap 5-325 ) 1 Tab Tablet, 1 TAB PO PRN Q4HRS PRN for MODERATE-SEVERE PAIN MDD 1, #15 Prescribed by: HARPREET XIE on 01/25/19926 HARPREET XIE MD Jan 25, 2019 09:36
--- NOTE | 2019-01-25 11:29 | NUR ---
Discharge Note: GENA MALDONADO [facility] Discharge instructions and discharge home medications reviewed with Patient and a copy given. All questions have been answered and understanding verbalized. The following instructions and handouts were given: New medications. Follow up appointments. Discontinued lines and drains: dressings clean dry intact. See interventions. Patient discharged to home/self-care with family.
== END 2019-01-25 10:20 | disposition home or self-care (01) | DRG 246 ==
LOC: ER 05:27 → 1 WEST ICU 05:40
PROVIDERS: ADMIT Internal Medicine; ATTEND Internal Medicine
PROC: B2111ZZ Fluoroscopy of Multiple Coronary Arteries using Low Osmolar Contrast (ICD-10-PCS; principal; 2019-01-24)
PROC: 027034Z Dilation of Coronary Artery, One Artery with Drug-eluting Intraluminal Device, Percutaneous Approach (ICD-10-PCS; 2019-01-24)
PROC: 02703ZZ Dilation of Coronary Artery, One Artery, Percutaneous Approach (ICD-10-PCS; 2019-01-24)
PROC: B2151ZZ Fluoroscopy of Left Heart using Low Osmolar Contrast (ICD-10-PCS; 2019-01-24)
PROC: 4A023N7 Measurement of Cardiac Sampling and Pressure, Left Heart, Percutaneous Approach (ICD-10-PCS; 2019-01-24)
DX: I21.3 ST elevation (STEMI) myocardial infarction of unspecified site (principal); I50.31 Acute diastolic (congestive) heart failure; I47.2 Ventricular tachycardia; R73.03 Prediabetes; E66.9 Obesity, unspecified; Z68.33 Body mass index [BMI] 33.0-33.9, adult; E78.5 Hyperlipidemia, unspecified; F17.210 Nicotine dependence, cigarettes, uncomplicated; I25.2 Old myocardial infarction; Z82.49 Family history of ischemic heart disease and other diseases of the circulatory system; Z86.73 Personal history of transient ischemic attack (TIA), and cerebral infarction without residual deficits; Z88.8 Allergy status to other drugs, medicaments and biological substances; Z91.041 Radiographic dye allergy status; I11.0 Hypertensive heart disease with heart failure
CPT/HCPCS: 92920; 92928; 93458; 99291; G0269; 36415; 71045; 80048; 80053; 80061; 82962; 83036; 83880; 84484; 85025; 85610; 87641; 93005; 93306; 96374; 99152; 99153; 99406; C1725; C1760; C1769; C1874; C1887; C1892; J0282; J0583; J1644; J1815; J2250; J3010; J3490; Q9967; C1771

== ENCOUNTER 2019-07-14 11:01 | Inpatient (IN) | payer MEDICARE, MEDICAID ==
[~2019-07-14] VITALS: Ht 154.9 cm; Wt 82.8 kg
[~2019-07-14 11:01] MED LIST: ASPI325T11 PO; ATOR20TA58 PO; CLOP75TA PO; GLYB1.252 PO; HYDR-2761 PO; INSU100I13 SQ; LOSA-73 PO; METF500T PO; METO25TA4 PO
--- NOTE | 2019-07-14 13:43 | NUR ---
Patient arrived to room 263 at 1343 from [place]. Patient very tired, family helped with admission questions. The patient, GENA MALDONADO, 64 y/o, F admitted by FIFI TRUONG MD, was given written information regarding hospital policies, unit procedures and contact persons. Valuables were checked and noted. Will continue to monitor.
[2019-07-14 13:45] VITALS: BP 156/68
--- NOTE | 2019-07-14 14:10 | PDOC1 ---
History and Physical Date of Admission Date of Admission DATE: 07/14/19 TIME: 14:10 Identification/Chief Complaint Chief Complaint transfer from [facility] in [place] with angina, was admitted last night, and refused work-up at that facility, desired to be transported here per records reviewed Past Medical History Past Medical History Past Medical History Cardiovascular: CAD STENT Pulmonary: No pertinent hx GI: No pertinent hx Heme/Onc: No pertinent hx Hepatobiliary: No pertinent hx Psych: No pertinent hx Rheumatologic: No pertinent hx Infectious disease: No pertinent hx ENT: No pertinent hx Renal/: No pertinent hx Endocrine: No pertinent hx Dermatology: No pertinent hx Past Surgical History Past Surgical History: No pertinent history Family History Family History: Hypertension Social History Smoke: 1 pack per day ALCOHOL: none Drugs: None Cardiovascular: No pertinent hx, HTN Pulmonary: No pertinent hx GI: No pertinent hx Heme/Onc: No pertinent hx Hepatobiliary: No pertinent hx Psych: No pertinent hx Musculoskeletal: Osteoarthritis Rheumatologic: No pertinent hx Infectious disease: No pertinent hx Renal/: No pertinent hx Endocrine: No pertinent hx Past Surgical History Past Surgical History: No pertinent history Family History Family History: Chronic Bronchitis, Hypertension Social History Smoke: 1 pack per day ALCOHOL: none Drugs: None Current Medications Current Medications Active Scripts Active Lantus Solostar (Insulin Glargine,Hum.rec.anlog) 100 Unit/1 Ml Insuln.pen 20 Unit SQ QHS Glucophage (Metformin Hcl) 500 Mg Tablet 500 Mg PO BIDWMEALS MDD 1 Hydrocodone-Apap 5-325 (Hydrocodone Bit/Acetaminophen) 1 Tab Tablet 1 Tab PO PRN Q4HRS PRN MDD 1 Cozaar (Losartan Potassium) 50 Mg Tablet 100 Mg PO DAILY MDD 1 Aspirin Ec (Aspirin) 325 Mg Tablet.dr 325 Mg PO DAILYWBKFT MDD 1 Metoprolol Tartrate 25 Mg Tablet 25 Mg PO BID MDD 1 Atorvastatin Calcium 20 Mg Tablet 40 Mg PO QHS MDD 1 Clopidogrel (Clopidogrel Bisulfate) 75 Mg Tablet 75 Mg PO DAILYWBKFT MDD 1 Allergies Allergies: Coded Allergies: prednisone (Verified Allergy, Severe, 01/24/19) I S O L A T I O N *CONTACT* (Verified Allergy, Unknown, 01/25/19) mrsa Uncoded Allergies: Antibiotics (Adverse Reaction, Intermediate, "ITCHING/HIVES", 01/24/19) ROS Review of System 14 pt ros otherwise neg General: YES: Fatigue PSYCHOLOGICAL ROS: YES: Anxiety; No: Behavioral Disorder, Concentration difficultie, Decreased libido, Depres stacy, Disorientation, Hallucinations, Hostility, Irritablity, Memory difficulties, Mood Swings, Obsessive thoughts, Physical abuse, Sexual abuse, Sleep disturbances, Suicidal ideation, Other Eyes: No Blurry vision, No Decreased vision, No Double vision, No Dry eyes, No Excessive tearing, No Eye Pain, No Itchy Eyes, No Loss of vision, No Photophobia, No Scotomata, No Uses contacts, No Uses glasses, No Other ALLERGY AND IMMUNOLOGY: No: Hives, Insect Bite Sensitivity, Itchy/Watery Eyes, Nasal Congestion, Post Nasal Drip, Seasonal Allergies, Other Hematological and Lymphatic: No: Bleeding Problems, Blood Clots, Blood Transfusions, Brusing, Night Sweats, Pallor, Swollen Lymph Nodes, Other Respiratory: YES: Pleuritic Pain, Shortness of breath; No: Cough, Hemoptysis, Orthopnea, SOB with excertion, Sputum Changes, Stridor, Tachypnea, Wheezing, Other Cardiovascular: yes Chest Pain Gastrointestinal: No Nausea, No Vomiting, No Abdominal Pain, No Diarrhea, No Constipation, No Melena, No Hematochezia, No Other Genitourinary: No Dysuria, No Frequency, No Incontinence, No Hematuria, No Retention, No Discharge, No Urgency, No Pain, No Flank Pain, No Other, No , No , No , No , No , No , No Musculoskeletal: Yes Joint Stiffness; No Gait Disturbance, No Joint Pain, No Joint Swelling, No Muscle Pain, No Muscular Weakness, No Pain In:, No Swelling In:, No Other Skin: Yes Dry Skin Physical Exam General: Alert, Oriented X3, Cooperative, No acute distress HEENT: Atraumatic, PERRLA, Mucous membr. moist/pink Lungs: Clear to auscultation, Normal air movement Heart: RRR Breasts: Not examined Abdomen: Normal bowel sounds, Soft, No hepatosplenomegaly, No masses Rectal Exam: not examined PELVIC: Examination not indicated Extremities: No cyanosis Neuro: Normal speech, Sensation intact, Cranial nerves 3-12 NL Psych/Mental Status: Mental status NL, Mood NL Images Images APPROVED REPORT Technologist: Katy Oh, RT (R) Nurse: Krys Negron R.N. Procedure(s) performed: 1. Left heart catheterization, selective coronary angiography and left ventriculography 2. Successful PCI/drug eluting stent placement to the dominant left circumflex artery and balloon PTCA to the obtuse marginal branch mod sed 60 Min fluoro time 11.5 dap 123.71 Gycm2 contrast 240ml INDICATION The indication(s) include : 63-year-old female presented with chest pain and was found to have ST elevations in lead III and aVF on initial EKG consistent with acute inferior wall ST elevation myocardial infarction. However, on presentation to the cardiac Cad Developer patient had resolution of chest pain as well as ST elevations, consistent with aborted STEMI.. [facility] Clinical Frailty Scale [facility] Clinical Frailty Scale: Mildly Frail Heart Failure Heart Failure: No PROCEDURE NARRATIVE After explaining the risks, benefits and alternative options, informed consent was obtained from patient. Patient was brought to the cardiac Cad Developer and her right groin was prepped and draped in the usual fashion. 20 mL of 2% lidocaine was infiltrated into the skin and subcutaneous tissues for local anesthesia. Arterial access was obtained in the right common femoral artery and a 6 Syrian sheath was inserted. 6 Syrian JL4 and 6 Syrian JR4 catheters were used to perform selective angiography of the left and right coronary arteries. 6 Syrian pigtail catheter was used to perform left ventriculography at the end of procedure. The following findings were noted. FINDINGS 1. Hemodynamics: Elevated left ventricular end-diastolic pressure of 37 mmHg consistent with acute diastolic heart failure. No pullback gradient across the aortic valve. 2. Left ventriculography: Inferoapical wall hypokinesis with ejection fraction estimated at 55%. No significant mitral regurgitation was seen. 3. Coronary angiography: a. The left main coronary artery arose from the left sinus of Valsalva, gave rise to the left anterior descending and left circumflex arteries and did not show any significant stenosis. b. The left anterior descending artery showed 30% stenosis in the ostial segment. c. The left circumflex artery was a large and dominant vessel that showed 90% bifurcation lesion involving the mid to distal segment and origin of the third obtuse marginal branch which is a medium caliber vessel. This is most probably the culprit lesion since patient had ST elevations during intervention on this lesion. d. The right coronary artery was a small and nondominant vessel that showed 90% stenosis in the midsegment. INTERVENTION The left main coronary artery was engaged with a 6 Syrian EBU 3.5 guide catheter and the stenosis in the mid to distal segment of the dominant left circumflex artery was crossed with a 0.014 inch [employer] Pro water guidewire. This was predilated with a 2.5 x 12 mm trek balloon following which this was successfully treated with a 2.5 x 22 mm resolute anayeli drug-eluting stent. The stent struts were then crossed into the third obtuse marginal branch and the struts and proximal segment of the obtuse marginal branch were dilated with a 2.5 x 8 mm noncompliant NC trek balloon. Follow-up angiography showed resolution of the stenosis to 0% with NELL-3 distal flow. Patient tolerated the procedure well. Hemostasis was achieved using Angio-Seal. There were no immediate complications. NELL Flow NELL Flow (Pre-Intervention): NELL-2 NELL Flow (Post-Intervention): NELL-3 Conclusion 1. 90% bifurcation lesion involving dominant left circumflex artery and third obtuse marginal branch, the culprit vessel for patient's aborted inferior wall STEMI. The right coronary artery was a small and nondominant vessel showing 90% stenosis in the midsegment. 2. Successful PCI/drug eluting stent placement to the left circumflex artery and balloon PTCA to the obtuse marginal branch. 3. Inferoapical wall hypokinesis with ejection fraction estimated at 55% Recommendations 1. Aspirin 325 mg daily 2. Plavix 75 mg daily for preferably one year 3. Cardiovascular risk factor modification including smoking cessation Signed by : Lindsay Cleaning, Electronically Approved : 01/24/2019 07:27:10 DICTATED and SIGNED BY: LINDSAY CLEANING MD DATE: 01/24/19 0727 VTE Prophylaxis Ordered VTE Prophylaxis Devices: No VTE Pharmacological Prophylaxi: Yes Assessment/Plan Assessment/Plan IMPRESSION 1. ANGINA with HX CAD stemi s/p Successful PCI/drug eluting stent placement to the dominant left circumflex artery and balloon PTCA to the obtuse marginal branch 01/20 2. 01/20 HX 90% bifurcation lesion involving dominant left circumflex artery and third obtuse marginal branch, the culprit vessel for patient's aborted inferior wall STEMI. The right coronary artery was a small and nondominant vessel showed 90% stenosis in the midsegment. 3. Successful PCI/drug eluting stent placement to the left circumflex artery and balloon PTCA to the obtuse marginal branch. 01/20 4. Inferoapical wall hypokinesis with ejection fraction estimated at 55% 5, copd 6. tobacco abuse disorder, still smokes ppd PLAN CONSULT CARDIOLOGY [facility] BED home meds echo dvt prophylaxis admit 61 min pt exam, chart review , > 50% of time spent with exam, chart review, pt care coordination FIFI TRUONG MD Jul 14, 2019 14:10
[2019-07-14] MEDS ORDERED: HYDROcodone/APAP 5/325MG 1 TAB TABLET PO PRN (14:15)
[2019-07-14] MEDS ORDERED: guaiFENesin ORAL 200 MG/10 ML LIQUID. PO PRN (14:30)
[2019-07-14] MEDS ORDERED: 0.9 % SODIUM CHLORIDE 10 ML DISP.SYRIN. IV PRN (14:30)
[2019-07-14] MEDS ORDERED: DOCUSATE SODIUM 100 MG CAPSULE. PO PRN (14:30)
[2019-07-14] MEDS ORDERED: LORazepam 0.5 MG TABLET PO PRN (14:30)
[2019-07-14] MEDS ORDERED: cloNIDine HCL 0.1 MG TABLET PO PRN (14:30)
[2019-07-14] MEDS ORDERED: ONDANSETRON PF 4 MG/2 ML VIAL. IV PRN (14:30)
[2019-07-14] MEDS ORDERED: ACETAMINOPHEN 325 MG TABLET. PO PRN (14:30)
[2019-07-14 15:00] VITALS: BP 126/60
[2019-07-14] MEDS ORDERED: ENOXAPARIN 40 MG/0.4 ML SYRINGE. SQ SCH (15:00)
[2019-07-14] MEDS ORDERED: ATOR20TA58 PO (15:29)
[2019-07-14] MEDS ORDERED: INSU100I17 SQ (15:33)
[2019-07-14] MEDS ORDERED: CLON1TAB12 PO (15:33)
[2019-07-14 15:47] LABS: BASO # 0.1 x10^3/uL (0.0-0.2); BASO % 1 % (0-3); EOS # 0.3 x10^3/uL (0.0-0.7); EOS % 4 % (0-3); HEMATOCRIT 43.7 % (36.0-47.0); HEMOGLOBIN 15.2 g/dL (12.0-15.5); LYMPH # 2.3 x10^3/uL (1.0-4.8); LYMPH % 32 % (24-48); MEAN CORPUSCULAR HEMOGLOBIN 32 pg (25-35); MEAN CORPUSCULAR HGB CONC 35 g/dL (31-37); MEAN CORPUSCULAR VOLUME 92 fL (79-100); MONO # 0.6 x10^3/uL (0.0-1.1); MONO % 9 % (0-9); NEUT # 3.9 x10^3/uL (1.8-7.7); NEUT % 55 % (31-73); PLATELET COUNT 145 x10^3/uL (140-400); RED BLOOD COUNT 4.77 x10^6/uL (3.50-5.40); RED CELL DISTRIBUTION WIDTH 13.7 % (11.5-14.5); WHITE BLOOD COUNT 7.1 x10^3/uL (4.0-11.0)
--- NOTE | 2019-07-14 16:03 | PDOC2 ---
CONSULT Date of Consult Date of Consult DATE: 07/14/19 TIME: 16:02 Reason for Consult Reason for Consult: Chest pain Referring Physician Referring Physician: Dr. Georges Identification/Chief Complaint Chief Complaint Facial pain Source Source: Chart review, Patient History of Present Illness Reason for Visit: 64-year-old female with history of coronary artery disease s/p PCI/ANT to dominant LCx and PTCA to OM in January 2019 initially presented to [facility] complaining of right-sided facial pain and mild retrosternal chest pain not related to exertion or food intake. She was apparently more concerned about the right sided facial pain. She denied any orthopnea/PND, palpitations or syncope. Patient stopped taking all her medications except insulin 1 month after her angioplasty. The importance of dual antiplatelet therapy was reemphasized more recently during office visit with me but patient declined any medications for spiritual reasons. Past Medical History Cardiovascular: No pertinent hx, HTN Pulmonary: No pertinent hx GI: No pertinent hx Heme/Onc: No pertinent hx Hepatobiliary: No pertinent hx Psych: No pertinent hx Musculoskeletal: Osteoarthritis Rheumatologic: No pertinent hx Infectious disease: No pertinent hx Renal/: No pertinent hx Endocrine: No pertinent hx Past Surgical History Past Surgical History: No pertinent history Family History Family History: Chronic Bronchitis, Hypertension Social History 1 pack per day ALCOHOL: none Drugs: None Current Medications Current Medications Current Medications Aspirin (Ecotrin) 325 mg DAILYWBKFT PO ; Start 07/15/19 at 08:00 Atorvastatin Calcium (Lipitor) 40 mg QHS PO ; Start 07/14/19 at 21:00 Clopidogrel Bisulfate (Plavix) 75 mg DAILYWBKFT PO ; Start 07/15/19 at 08:00 Acetaminophen/ Hydrocodone Bitart (Lortab 5/325) 1 tab PRN Q4HRS PRN PO MODERATE-SEVERE PAIN; Start 07/14/19 at 14:15 Losartan Potassium (Cozaar) 100 mg DAILY PO ; Start 07/15/19 at 09:00 Metformin HCl (Glucophage) 500 mg BIDWMEALS PO ; Start 07/14/19 at 17:00 Metoprolol Tartrate (Lopressor) 25 mg BID PO ; Start 07/14/19 at 21:00 Insulin Glargine (Lantus Syringe) 20 unit QHS SQ ; Start 07/14/19 at 21:00 Sodium Chloride (Normal Saline Flush) 3 ml QSHIFT PRN IV AFTER MEDS AND BLOOD DRAWS; Start 07/14/19 at 14:30 Ondansetron HCl (Zofran) 4 mg PRN Q4HRS PRN IV NAUSEA/VOMITING; Start 07/14/19 at 14:30 Acetaminophen (Tylenol) 650 mg PRN Q4HRS PRN PO TEMP OVER 100.4F OR MILD PAIN; Start 07/14/19 at 14:30 Clonidine HCl (Catapres) 0.1 mg PRN Q6HRS PRN PO SBP>160 OR DBP>90; Start 07/14/19 at 14:30 Docusate Sodium (Colace) 100 mg PRN BID PRN PO CONSTIPATION; Start 07/14/19 at 14:30 Guaifenesin (Robitussin) 200 mg PRN Q4HRS PRN PO COUGH; Start 07/14/19 at 14:30 Lorazepam (Ativan) 0.5 mg PRN Q4HRS PRN PO ANXIETY / AGITATION; Start 07/14/19 at 14:30 Enoxaparin Sodium (Lovenox 40mg Syringe) 40 mg Q24H SQ ; Start 07/14/19 at 15:00 Albuterol/ Ipratropium (Duoneb) 3 ml RTQID NEB ; Start 07/14/19 at 16:00 Active Scripts Active Lantus Solostar (Insulin Glargine,Hum.rec.anlog) 100 Unit/1 Ml Insuln.pen 20 Unit SQ QHS Hydrocodone-Apap 5-325 (Hydrocodone Bit/Acetaminophen) 1 Tab Tablet 1 Tab PO PRN Q4HRS PRN MDD 1 Cozaar (Losartan Potassium) 50 Mg Tablet 100 Mg PO DAILY MDD 1 Aspirin Ec (Aspirin) 325 Mg Tablet.dr 325 Mg PO DAILYWBKFT MDD 1 Metoprolol Tartrate 25 Mg Tablet 25 Mg PO BID MDD 1 Clopidogrel (Clopidogrel Bisulfate) 75 Mg Tablet 75 Mg PO DAILYWBKFT MDD 1 Reported Clonazepam 1 Mg Tablet 1 Mg PO PRN Q12HR PRN Novolog Flexpen (Insulin Aspart) 100 Unit/1 Ml Insuln.pen 20 Units SQ TIDWMEALS Atorvastatin Calcium 20 Mg Tablet 20 Mg PO HS Allergies Allergies: Coded Allergies: prednisone (Verified Allergy, Severe, 01/24/19) Penicillins (Verified Allergy, Intermediate, HIVES, ITCHING, 07/14/19) cephalexin (Verified Allergy, Intermediate, HIVES, ITCHING, 07/14/19) diphenhydramine (Verified Allergy, Intermediate, 07/14/19) I S O L A T I O N *CONTACT* (Verified Allergy, Unknown, 01/25/19) mrsa ROS PSYCHOLOGICAL ROS: No: Hallucinations Eyes: No Loss of vision HEENT: No: Epistaxis Respiratory: No: Hemoptysis Cardiovascular: yes Chest Pain Gastrointestinal: No Vomiting, No Diarrhea Genitourinary: No Incontinence Neurological: Yes Headaches; No Seizures Skin: No Rash Physical Exam General: Alert, Oriented X3 HEENT: Atraumatic Lungs: Clear to auscultation Heart: Regular rate Abdomen: Soft Extremities: No edema Psych/Mental Status: Mood NL Labs Labs Laboratory Tests Test 07/14/19 15:30 White Blood Count 7.1 x10^3/uL (4.0-11.0) Red Blood Count 4.77 x10^6/uL (3.50-5.40) Hemoglobin 15.2 g/dL (12.0-15.5) Hematocrit 43.7 % (36.0-47.0) Mean Corpuscular Volume 92 fL (79-100) Mean Corpuscular Hemoglobin 32 pg (25-35) Mean Corpuscular Hemoglobin Concent 35 g/dL (31-37) Red Cell Distribution Width 13.7 % (11.5-14.5) Platelet Count 145 x10^3/uL (140-400) Neutrophils (%) (Auto) 55 % (31-73) Lymphocytes (%) (Auto) 32 % (24-48) Monocytes (%) (Auto) 9 % (0-9) Eosinophils (%) (Auto) 4 % (0-3) Basophils (%) (Auto) 1 % (0-3) Neutrophils # (Auto) 3.9 x10^3/uL (1.8-7.7) Lymphocytes # (Auto) 2.3 x10^3/uL (1.0-4.8) Monocytes # (Auto) 0.6 x10^3/uL (0.0-1.1) Eosinophils # (Auto) 0.3 x10^3/uL (0.0-0.7) Basophils # (Auto) 0.1 x10^3/uL (0.0-0.2) Laboratory Tests Test 07/14/19 15:30 White Blood Count 7.1 x10^3/uL (4.0-11.0) Red Blood Count 4.77 x10^6/uL (3.50-5.40) Hemoglobin 15.2 g/dL (12.0-15.5) Hematocrit 43.7 % (36.0-47.0) Mean Corpuscular Volume 92 fL (79-100) Mean Corpuscular Hemoglobin 32 pg (25-35) Mean Corpuscular Hemoglobin Concent 35 g/dL (31-37) Red Cell Distribution Width 13.7 % (11.5-14.5) Platelet Count 145 x10^3/uL (140-400) Neutrophils (%) (Auto) 55 % (31-73) Lymphocytes (%) (Auto) 32 % (24-48) Monocytes (%) (Auto) 9 % (0-9) Eosinophils (%) (Auto) 4 % (0-3) Basophils (%) (Auto) 1 % (0-3) Neutrophils # (Auto) 3.9 x10^3/uL (1.8-7.7) Lymphocytes # (Auto) 2.3 x10^3/uL (1.0-4.8) Monocytes # (Auto) 0.6 x10^3/uL (0.0-1.1) Eosinophils # (Auto) 0.3 x10^3/uL (0.0-0.7) Basophils # (Auto) 0.1 x10^3/uL (0.0-0.2) Assessment/Plan Assessment/Plan 1. Chest pain with atypical features and right-sided facial pain. Patient has history of CAD and had undergone PCI/ANT to dominant LCx and PTCA to OM in January 2019. Left ventricle systolic function was normal on 2-D echo at that time. Myocardial infarction has been ruled out based on EKG and 3 sets of cardiac enzymes (two from [facility] and one from [facility]). Patient stopped taking all her medications except insulin 1 month after her angioplasty as stated above due to spiritual reasons but is presently more amenable to taking medications. We will resume aspirin, Plavix and statins. We will consider outpatient ischemic evaluation with Lexiscan nuclear stress test. 2. Hypertension: Elevated on admission but is presently better controlled. 3. Hyperlipidemia: Statins 4. Diabetes mellitus type 2: Treat per IM 5. COPD: Clinically stable Thank you for your consultation. Follow-up with our office in 1 month. LINDSAY SRINIVASAN MD Jul 14, 2019 16:03
[2019-07-14 16:06] LABS: ALBUMIN 3.5 g/dL (3.4-5.0); ALBUMIN/GLOBULIN RATIO 1.1 (1.0-1.7); CALCIUM 8.8 mg/dL (8.5-10.1); CREATININE 0.6 mg/dL (0.6-1.0); GFR 100.3; TOTAL BILIRUBIN 0.5 mg/dL (0.2-1.0); TOTAL PROTEIN 6.6 g/dL (6.4-8.2)
--- NOTE | 2019-07-14 16:38 | RAD ---
EXAM: Chest CT without intravenous contrast. HISTORY: Chest pain. TECHNIQUE: Computed tomographic images of the chest were obtained without contrast. Multiplanar reformatting was performed. *One or more of the following individualized dose reduction techniques were utilized for this examination: 1. Automated exposure control. 2. Adjustment of the mA and/or kV according to patient size. 3. Use of iterative reconstruction technique. COMPARISON: Chest radiograph dated 01/24/2019. FINDINGS: The heart is normal in size. The aorta is normal in caliber. There is a common origin of the right innominate and left common carotid arteries, a normal arch branching variant. There is aortic, aortic branch vessel and coronary artery atherosclerosis with calcified plaque. There are nonspecific mediastinal and hilar lymph nodes, some which are calcified and consistent with healed granulomatous disease. There is mild emphysema with slight central bronchial wall thickening suggesting the sequela of bronchitis. There are tiny nodular and groundglass opacities within the right greater than left lower lobe which may be infectious or inflammatory. There is a 12 mm nodule within the lateral right lower lobe. There is a calcified granuloma within the lingula. There are granulomas within the spleen. There is colonic diverticulosis. The upper abdomen is otherwise unremarkable. There is no suspicious osseous lesion. IMPRESSION: 1. Scattered tiny nodular and groundglass opacities within the right greater than left lower lobes, likely infectious or inflammatory in etiology. This is superimposed on mild emphysema and bronchial wall thickening suggesting the sequela of bronchitis. No consolidated infiltrate is seen. 2. 12 mm solid noncalcified nodule within the right lower lobe. In the absence of prior studies to assess for interval change, this is within limits in size for assessment with PET/CT. 3. Prominent mediastinal and hilar lymph nodes, possibly reactive in etiology. Fleischner Society recommendations (Radiology 2017): SOLID NODULES Solitary solid nodule <6 mm - low-risk patient: no routine follow-up required - high-risk patient: optional CT at 12 months (particularly with suspicious nodule morphology and/or upper lobe location) Solitary solid nodule 6-8 mm - low-risk patient: CT at 6-12 months, then consider CT at 18-24 months - high risk patient: CT at 6-12 months, then if persistent CT at 18-24 months Solitary solid nodule >8 mm - consider CT at 3 months, PET/CT, or tissue sampling Multiple solid nodules <6 mm - low-risk patient: no routine follow-up required - high-risk patient: optional CT at 12 months Multiple solid nodules >6 mm - low-risk patient: CT at 3-6 months, then consider CT at 18-24 months - high risk patient: CT at 3-6 months, then if persistent CT at 18-24 months SUBSOLID NODULES Solitary ground glass nodule <6 mm - no routine follow-up required Solitary ground glass nodule > or = 6 mm - CT at 6-12 months, then if persistent CT every 2 years until 5 years Solitary part solid nodule > or = 6mm - CT at 3-4 months, the if persistent and solid component remains <6 mm, annual CT until 5 years Multiple subsolid nodules <6 mm - CT at 3-6 months, then if stable consider CT at 2 and 4 years in high risk patients Multiple subsolid nodules > or = 6 mm - CT at 3-6 months, then subsequent management based on the most suspicious nodule(s) Electronically signed by: Char Padgett MD (07/14/2019 4:35 PM) [place] [id number]
[2019-07-14] MEDS: IPRATRPIUM/ALBUTEROL 0.5/2.5MG 3 ML NEBU. NEB SCH ×2 (16:49→20:10)
[2019-07-14] MEDS ORDERED: metFORMIN 500 MG TABLET PO SCH (17:00)
[2019-07-14] MEDS ORDERED: CLONAZEPAM 1 MG PO PRN (17:15)
[2019-07-14] MEDS ORDERED: INSULIN REGULAR 100 UNIT/ML 3ML VIAL. IV SCH (17:15)
[2019-07-14] MEDS ORDERED: DEXTROSE 50% 25 GM / 50ML DISP.SYRIN. IV PRN (17:30)
[2019-07-14] MEDS: INSULIN LISPRO 300 UNITS/3 ML VIAL. SQ SCH (18:26)
[2019-07-14 19:00] VITALS: BP 135/60
[2019-07-14] MEDS ORDERED: INSULIN GLARGINE SYRINGE. SQ SCH (21:00)
[2019-07-14] MEDS ORDERED: ATORVASTATIN CALCIUM 20 MG TABLET PO SCH ×2 (21:00)
[2019-07-14] MEDS: METOPROLOL TART IMMED RELEASE 25 MG TABLET. PO SCH (21:22)
[2019-07-14 22:56] VITALS: BP 110/53
[2019-07-15 03:00] VITALS: BP 122/58
[2019-07-15 07:00] VITALS: BP 154/79
[2019-07-15] MEDS ORDERED: ASPIRIN ENTERIC COATED 325 MG TABLET.DR. PO SCH (08:00)
[2019-07-15] MEDS ORDERED: CLOPIDOGREL BISULFATE 75 MG TABLET PO SCH (08:00)
[2019-07-15 08:51] VITALS: BP 154/79
[2019-07-15] MEDS: METOPROLOL TART IMMED RELEASE 25 MG TABLET. PO SCH (08:51)
[2019-07-15] MEDS: INSULIN LISPRO 300 UNITS/3 ML VIAL. SQ SCH (08:55)
[2019-07-15] MEDS ORDERED: LOSARTAN POTASSIUM 50 MG TABLET. PO SCH (09:00)
[2019-07-15] MEDS: IPRATRPIUM/ALBUTEROL 0.5/2.5MG 3 ML NEBU. NEB SCH (09:16)
--- NOTE | 2019-07-15 10:44 | PDOC ---
[employer] PROGRESS NOTE Chief Complaint Chief Complaint Facial pain Chest pain History of Present Illness History of Present Illness 07/15/19 Pt was seen and examined at bedside Was worried about facial pain due to previous history of heart attack No chest pain today Troponin: 0.017 Wants to go home Charts and labs reviewed DW RN Vitals/I&O Vitals/I&O: Vital Signs Date Time Temp Pulse Resp B/P (MAP) Pulse Ox O2 Delivery O2 Flow Rate FiO2 07/15/19 09:17 92 Room Air 07/15/19 08:51 83 154/79 07/15/19 07:00 97.9 18 97.9 I & O 07/14/19 07/14/19 07/15/19 15:00 23:00 07:00 Intake Total 50 ml Balance 50 ml Physical Exam General: Alert, Oriented X3, Cooperative, No acute distress Heart: Regular rate Lungs: Clear Abdomen: Soft Extremities: No clubbing, No cyanosis, No edema Skin: No rashes, No breakdown Labs Labs: Laboratory Tests Test 07/14/19 15:30 07/14/19 17:11 07/14/19 20:50 07/15/19 08:05 White Blood Count 7.1 x10^3/uL (4.0-11.0) Red Blood Count 4.77 x10^6/uL (3.50-5.40) Hemoglobin 15.2 g/dL (12.0-15.5) Hematocrit 43.7 % (36.0-47.0) Mean Corpuscular Volume 92 fL (79-100) Mean Corpuscular Hemoglobin 32 pg (25-35) Mean Corpuscular Hemoglobin Concent 35 g/dL (31-37) Red Cell Distribution Width 13.7 % (11.5-14.5) Platelet Count 145 x10^3/uL (140-400) Neutrophils (%) (Auto) 55 % (31-73) Lymphocytes (%) (Auto) 32 % (24-48) Monocytes (%) (Auto) 9 % (0-9) Eosinophils (%) (Auto) 4 % (0-3) Basophils (%) (Auto) 1 % (0-3) Neutrophils # (Auto) 3.9 x10^3/uL (1.8-7.7) Lymphocytes # (Auto) 2.3 x10^3/uL (1.0-4.8) Monocytes # (Auto) 0.6 x10^3/uL (0.0-1.1) Eosinophils # (Auto) 0.3 x10^3/uL (0.0-0.7) Basophils # (Auto) 0.1 x10^3/uL (0.0-0.2) Sodium Level 143 mmol/L (136-145) Potassium Level 4.0 mmol/L (3.5-5.1) Chloride Level 107 mmol/L (98-107) Carbon Dioxide Level 27 mmol/L (21-32) Anion Gap 9 (6-14) Blood Urea Nitrogen 16 mg/dL (7-20) Creatinine 0.6 mg/dL (0.6-1.0) Estimated GFR (Cockcroft-Gault) 100.3 BUN/Creatinine Ratio 27 (6-20) Glucose Level 236 mg/dL (70-99) Calcium Level 8.8 mg/dL (8.5-10.1) Total Bilirubin 0.5 mg/dL (0.2-1.0) Aspartate Amino Transf (AST/SGOT) 19 U/L (15-37) Alanine Aminotransferase (ALT/SGPT) 24 U/L (14-59) Alkaline Phosphatase 60 U/L (46-116) Troponin I Quantitative < 0.017 ng/mL (0.000-0.055) Total Protein 6.6 g/dL (6.4-8.2) Albumin 3.5 g/dL (3.4-5.0) Albumin/Globulin Ratio 1.1 (1.0-1.7) Glucose (Fingerstick) 231 mg/dL (70-99) 274 mg/dL (70-99) 191 mg/dL (70-99) Review of Systems Review of Systems: No headache, no changes in vision No nausea, no vomiting Assessment and Plan Assessmemt and Plan Assessment Atypical angina Hyperlipidemia Hypertension Plan Cardiac monitoring Resume home meds Continue aspirin, plavix, statins Follow up with cardiology in one month D/C today Comment Review of Relevant I have reviewed the following items genesis (where applicable) has been applied. Medications: Current Medications Medications (Trade) Dose Ordered Sig/Velvet Route PRN Reason Start Time Stop Time Status Last Admin Dose Admin Aspirin (Ecotrin) 325 mg DAILYWBKFT PO 07/15/19 08:00 07/15/19 08:51 Clopidogrel Bisulfate (Plavix) 75 mg DAILYWBKFT PO 07/15/19 08:00 07/15/19 08:51 Losartan Potassium (Cozaar) 100 mg DAILY PO 07/15/19 09:00 07/15/19 08:51 Metoprolol Tartrate (Lopressor) 25 mg BID PO 07/14/19 21:00 07/15/19 08:51 Insulin Glargine (Lantus Syringe) 20 unit QHS SQ 07/14/19 21:00 07/14/19 21:28 Enoxaparin Sodium (Lovenox 40mg Syringe) 40 mg Q24H SQ 07/14/19 15:00 07/14/19 17:49 Albuterol/ Ipratropium (Duoneb) 3 ml RTQID NEB 07/14/19 16:00 07/15/19 09:16 Atorvastatin Calcium (Lipitor) 20 mg HS PO 07/14/19 21:00 07/14/19 21:22 Insulin Human Lispro (HumaLOG) 20 units TIDWMEALS SQ 07/14/19 18:15 07/15/19 08:55 JUJU DHILLON III DO Jul 15, 2019 10:44
--- NOTE | 2019-07-15 12:27 | NUR ---
Discharge Note: WILLIAM MALDONADO Discharge instructions and discharge home medications reviewed with Patient and a copy given. All questions have been answered and understanding verbalized. Instructions and handouts. Discontinued lines and drains. Patient discharged to home self care.
[2019-07-29] MEDS ORDERED: ACET325T9 PO (14:33)
[2019-07-29] MEDS ORDERED: DOCU100C28 PO (14:33)
[2019-07-29] MEDS ORDERED: CALC200T23 PO (14:33)
[2019-07-29] MEDS ORDERED: IBUP-1027 PO (14:33)
[2019-07-29] MEDS ORDERED: NITR0.4T24 SL (14:33)
== END 2019-07-15 12:30 | disposition home or self-care (01) | DRG 303 ==
LOC: 2 SOUTH 13:48
PROVIDERS: ADMIT Family Medicine; ATTEND Family Medicine
DX: I25.119 Atherosclerotic heart disease of native coronary artery with unspecified angina pectoris (principal); E11.9 Type 2 diabetes mellitus without complications; E78.5 Hyperlipidemia, unspecified; F17.210 Nicotine dependence, cigarettes, uncomplicated; I10 Essential (primary) hypertension; I25.2 Old myocardial infarction; J43.9 Emphysema, unspecified; K57.30 Diverticulosis of large intestine without perforation or abscess without bleeding; M19.90 Unspecified osteoarthritis, unspecified site; Z82.49 Family history of ischemic heart disease and other diseases of the circulatory system; Z82.5 Family history of asthma and other chronic lower respiratory diseases; Z91.14 Patient's other noncompliance with medication regimen; Z98.61 Coronary angioplasty status; Z88.8 Allergy status to other drugs, medicaments and biological substances; Z91.041 Radiographic dye allergy status
CPT/HCPCS: 36415; 71250; 80053; 82962; 84484; 85025; 87641; 94640; 99406; J1650; J1815; J7620; G0378

== ENCOUNTER 2019-07-28 18:45 | Inpatient (IN) | payer MEDICARE, MEDICAID ==
[~2019-07-28] VITALS: Ht 154.9 cm; Wt 80.7 kg
[~2019-07-28 18:45] MED LIST changes: +CLON1TAB12 PO; +INSU100I17 SQ
[2019-07-28] MEDS ORDERED: ACETAMINOPHEN 325 MG TABLET. PO PRN (19:00)
[2019-07-28] MEDS ORDERED: BISACODYL 10 MG SUPP.RECT. PR PRN (19:00)
[2019-07-28] MEDS ORDERED: oxyCODONE IR 5 MG TABLET PO PRN (19:00)
[2019-07-28] MEDS ORDERED: DEXTROSE 50% 25 GM / 50ML DISP.SYRIN. IV PRN (19:00)
[2019-07-28] MEDS ORDERED: ONDANSETRON PF 4 MG/2 ML VIAL. IV PRN (19:00)
[2019-07-28] MEDS ORDERED: HYDROcodone/APAP 5/325MG 1 TAB TABLET PO PRN (19:00)
[2019-07-28] MEDS ORDERED: ZOLPIDEM 5 MG TABLET. PO PRN (19:00)
[2019-07-28] MEDS ORDERED: LABETALOL 20 MG/4 ML DISP.SYRIN. IVP PRN (19:00)
[2019-07-28] MEDS ORDERED: MORPHINE SULFATE 2 MG/ML VIAL. IV PRN (19:00)
[2019-07-28] MEDS ORDERED: MAG HYDROX/ALUMINUM HYD/SIMETH 30 ML ORAL.SUSP PO PRN (19:00)
[2019-07-28] MEDS ORDERED: NITROGLYCERIN SUBLINGUAL 0.4 MG BOTTLE OF 25. SL PRN (19:00)
[2019-07-28] MEDS ORDERED: traMADol 50 MG TABLET PO PRN (19:00)
[2019-07-28] MEDS ORDERED: MAGNESIUM HYDROXIDE 2,400 MG/30 ML ORAL.SUSP. PO PRN (19:00)
[2019-07-28] MEDS ORDERED: fentaNYL PF VIAL 100 MCG/2 ML VIAL IVP PRN (19:00)
[2019-07-28] MEDS ORDERED: hydrALAZINE 20 MG/ML VIAL. IVP PRN (19:00)
[2019-07-28] MEDS ORDERED: IBUPROFEN 400 MG TABLET. PO PRN (19:00)
[2019-07-28] MEDS ORDERED: CALCIUM CARBONATE 500 MG TAB.CHEW PO PRN (19:00)
[2019-07-28] MEDS ORDERED: clonazePAM 0.5 MG TABLET PO PRN (19:15)
--- NOTE | 2019-07-28 19:24 | PDOC1 ---
History and Physical Date of Admission Date of Admission DATE: 07/28/19 TIME: 19:20 Identification/Chief Complaint Chief Complaint CP at rest, known CAD Source Source: Caregiver, Chart review, Patient History of Present Illness History of Present Illness Transfer from [facility], CP at rest in an adult, left sided, becoming more frequent and longer, left sided, intermittent, no signif soa or diaphoresis. TRop 0.03 there, transferred here for cards. Known pt Dr Ham, 1 stent? yrs ago, claims compliance with meds, NTG and fentanyl helped thae pain, Claims was supposed to have LHC or MPI done but was lost to ff up. VS ok, SBP 150s, high side, Dw dtr at bedside, FULL CODE< on plavoix.,statin etc as home meds and i have renewed/ Past Medical History Cardiovascular: No pertinent hx, CAD, HTN, Hyperlipidemia Pulmonary: No pertinent hx GI: No pertinent hx Heme/Onc: No pertinent hx Hepatobiliary: No pertinent hx Psych: No pertinent hx, Anxiety Musculoskeletal: Osteoarthritis Rheumatologic: No pertinent hx Infectious disease: No pertinent hx Renal/: No pertinent hx Endocrine: No pertinent hx, Diabetes Past Surgical History Past Surgical History: Other (PCI x 1), No pertinent history Family History Family History: Chronic Bronchitis, Hypertension Social History Smoke: No ALCOHOL: none Drugs: None Current Medications Current Medications Current Medications Ondansetron HCl (Zofran) 4 mg PRN Q6HRS PRN IV NAUSEA/VOMITING; Start 07/28/19 at 19:00 Al Hydroxide/Mg Hydroxide (Mylanta Plus Xs) 30 ml PRN Q3HRS PRN PO HEARTBURN / GAS; Start 07/28/19 at 19:00 Calcium Carbonate/ Glycine (Tums) 500 mg PRN Q3HRS PRN PO UPSET STOMACH; Start 07/28/19 at 19:00 Zolpidem Tartrate (Ambien) 5 mg PRN QHS PRN PO INSOMNIA, MAY REPEAT IN 1HR; Start 07/28/19 at 19:00 Oxycodone HCl (Roxicodone) 5 mg PRN Q3HRS PRN PO BREAKTHROUGH PAIN; Start 07/28/19 at 19:00 Morphine Sulfate (Morphine Sulfate) 1 mg PRN Q1HR PRN IV MODERATE PAIN; Start 07/28/19 at 19:00 Acetaminophen (Tylenol) 650 mg PRN Q6HRS PRN PO Headaches, Temp > 101.5F; Start 07/28/19 at 19:00 Ibuprofen (Motrin) 400 mg PRN Q6HRS PRN PO MILD PAIN 1-3; Start 07/28/19 at 19:00 Docusate Sodium (Colace) 100 mg BID PO ; Start 07/28/19 at 21:00 Magnesium Hydroxide (Milk Of Magnesia) 2,400 mg PRN Q12HR PRN PO CONSTIPATION; Start 07/28/19 at 19:00 Bisacodyl (Dulcolax Supp) 10 mg PRN DAILY PRN SD CONSTIPATION; Start 07/28/19 at 19:00 Nitroglycerin (Nitrostat) 0.4 mg PRN Q5MIN PRN SL CHEST PAIN; Start 07/28/19 at 19:00 Labetalol HCl (Normodyne Iv Push) 10 mg PRN Q2HR PRN IVP HYPERTENSION; Start 07/28/19 at 19:00 Hydralazine HCl (Apresoline Inj) 10 mg PRN Q4HRS PRN IVP ELEVATED BP, 2ND CHOICE; Start 07/28/19 at 19:00 Tramadol HCl (Ultram) 50 mg PRN Q6HRS PRN PO MODERATE PAIN; Start 07/28/19 at 19:00 Fentanyl Citrate (Fentanyl 2ml Vial) 50 mcg PRN Q2HR PRN IVP SEVERE PAIN; Start 07/28/19 at 19:00 Aspirin (Ecotrin) 325 mg DAILYWBKFT PO ; Start 07/29/19 at 08:00 Atorvastatin Calcium (Lipitor) 20 mg HS PO ; Start 07/28/19 at 21:00 Clopidogrel Bisulfate (Plavix) 75 mg DAILYWBKFT PO ; Start 07/29/19 at 08:00 Acetaminophen/ Hydrocodone Bitart (Lortab 5/325) 1 tab PRN Q4HRS PRN PO SEVERE PAIN; Start 07/28/19 at 19:00 Losartan Potassium (Cozaar) 100 mg DAILY PO ; Start 07/29/19 at 09:00 Metoprolol Tartrate (Lopressor) 25 mg BID PO ; Start 07/28/19 at 21:00 Clonazepam (KlonoPIN) 1 mg PRN Q12HRS PRN PO ANXIETY / AGITATION; Start 10/25/19 at 19:15 Insulin Human Lispro (HumaLOG) 20 units TIDWMEALS SQ ; Start 07/29/19 at 08:00 Insulin Glargine (Lantus Syringe) 20 unit QHS SQ ; Start 07/28/19 at 21:00 Insulin Human Lispro (HumaLOG) 0-9 UNITS TIDWMEALS SQ ; Start 07/29/19 at 08:00 Dextrose (Dextrose 50%-Water Syringe) 12.5 gm PRN Q15MIN PRN IV SEE COMMENTS; Start 07/28/19 at 19:00 Active Scripts Active Lantus Solostar (Insulin Glargine,Hum.rec.anlog) 100 Unit/1 Ml Insuln.pen 20 Unit SQ QHS Hydrocodone-Apap 5-325 (Hydrocodone Bit/Acetaminophen) 1 Tab Tablet 1 Tab PO PRN Q4HRS PRN MDD 1 Cozaar (Losartan Potassium) 50 Mg Tablet 100 Mg PO DAILY MDD 1 Aspirin Ec (Aspirin) 325 Mg Tablet.dr 325 Mg PO DAILYWBKFT MDD 1 Metoprolol Tartrate 25 Mg Tablet 25 Mg PO BID MDD 1 Clopidogrel (Clopidogrel Bisulfate) 75 Mg Tablet 75 Mg PO DAILYWBKFT MDD 1 Reported Clonazepam 1 Mg Tablet 1 Mg PO PRN Q12HR PRN Novolog Flexpen (Insulin Aspart) 100 Unit/1 Ml Insuln.pen 20 Units SQ TIDWMEALS Atorvastatin Calcium 20 Mg Tablet 20 Mg PO HS Allergies Allergies: Coded Allergies: prednisone (Verified Allergy, Severe, 01/24/19) Penicillins (Verified Allergy, Intermediate, HIVES, ITCHING, 07/14/19) cephalexin (Verified Allergy, Intermediate, HIVES, ITCHING, 07/14/19) diphenhydramine (Verified Allergy, Intermediate, 07/14/19) I S O L A T I O N *CONTACT* (Verified Allergy, Unknown, 01/25/19) mrsa ROS Review of System as per HPI, all else neg 14 pt Physical Exam General: Alert, Oriented X3, Cooperative, No acute distress HEENT: Atraumatic, PERRLA, EOMI Lungs: Clear to auscultation, Normal air movement Heart: S1S2, RRR, no thrills, no rubs, no gallops, no murmurs Cardiovascular: S1, S2 Breasts: Normal, Rt breast nml w/o mass, Lt breast nml w/o mass, Nipples normal Abdomen: Normal bowel sounds, Soft, No tenderness, No hepatosplenomegaly, No masses Rectal Exam: not examined PELVIC: Nml ext genitalia Extremities: No clubbing, No cyanosis, No edema, Normal pulses, No tenderness/swelling Skin: No rashes, No breakdown, No significant lesion Neuro: Normal gait, Normal speech, Strength at 5/5 X4 ext, Normal tone, Sensation intact, Cranial nerves 3-12 NL, Reflexes 2+ Psych/Mental Status: Mental status NL, Mood NL VTE Prophylaxis Ordered VTE Prophylaxis Devices: Yes VTE Pharmacological Prophylaxi: Yes Assessment/Plan Assessment/Plan CP in an adult at rest Trop 0/.03 - cushings legends Obesity HTN, DM 2, lipids etc - chronic stable 1 CAD indwelling stent PLAN: CVC bed Cards, trend CE Resume home meds NPO post MN incase MPI etc FULL CODE dw dtr HARPREET SAUNDERS MD Jul 28, 2019 19:24
[2019-07-28] MEDS: METOPROLOL TART IMMED RELEASE 25 MG TABLET. PO SCH (20:18)
[2019-07-28 20:27] VITALS: BP 99/59
[2019-07-28] MEDS ORDERED: ATORVASTATIN CALCIUM 20 MG TABLET PO SCH (21:00)
[2019-07-28] MEDS: DOCUSATE SODIUM 100 MG CAPSULE. PO SCH (21:00)
[2019-07-28] MEDS ORDERED: INSULIN GLARGINE SYRINGE. SQ SCH (21:00)
[2019-07-28 23:16] VITALS: BP 116/67
[2019-07-29 03:30] VITALS: BP 126/70
[2019-07-29 05:25] LABS: BASO % 1 % (0-3); EOS # 0.2 x10^3/uL (0.0-0.7); EOS % 4 % (0-3); HEMATOCRIT 41.1 % (36.0-47.0); HEMOGLOBIN 13.9 g/dL (12.0-15.5); LYMPH % 45 % (24-48); MEAN CORPUSCULAR HEMOGLOBIN 31 pg (25-35); MEAN CORPUSCULAR HGB CONC 34 g/dL (31-37); MEAN CORPUSCULAR VOLUME 92 fL (79-100); MONO # 0.6 x10^3/uL (0.0-1.1); MONO % 8 % (0-9); NEUT # 2.8 x10^3/uL (1.8-7.7); NEUT % 42 % (31-73); PLATELET COUNT 176 x10^3/uL (140-400); RED BLOOD COUNT 4.46 x10^6/uL (3.50-5.40); RED CELL DISTRIBUTION WIDTH 13.6 % (11.5-14.5); WHITE BLOOD COUNT 6.7 x10^3/uL (4.0-11.0)
[2019-07-29 05:46] LABS: CALCIUM 8.6 mg/dL (8.5-10.1); CREATININE 0.6 mg/dL (0.6-1.0); GFR 100.3; POTASSIUM 3.9 mmol/L (3.5-5.1)
[2019-07-29 06:07] LABS: PROTHROMBIN TIME PATIENT 12.7 SEC (11.7-14.0)
[2019-07-29 07:00] VITALS: BP 84/56
[2019-07-29] MEDS: INSULIN LISPRO 300 UNITS/3 ML VIAL. SQ SCH ×4 (08:00→12:05)
[2019-07-29] MEDS ORDERED: ASPIRIN ENTERIC COATED 325 MG TABLET.DR. PO SCH (08:00)
[2019-07-29] MEDS ORDERED: CLOPIDOGREL BISULFATE 75 MG TABLET PO SCH (08:00)
[2019-07-29] MEDS ORDERED: FLU VAX QS 2019-20 (36MOS+)/PF 0.5 ML SYRINGE. VAX IM ONE (09:00)
[2019-07-29] MEDS ORDERED: LOSARTAN POTASSIUM 50 MG TABLET. PO SCH (09:00)
--- NOTE | 2019-07-29 09:03 | PDOC ---
PROGRESS NOTES History of Present Illness History of Present Illness VTE Prophylaxis Ordered VTE Prophylaxis Devices: Yes VTE Pharmacological Prophylaxi: Yes discharge dx Chest pain Trop 0/.03 - cushings legends Obesity HTN, DM 2, lipids etc - chronic stable 1 CAD indwelling stent PLAN: CVC bed Cards, trend CE Resume home meds NPO post MN FULL CODE cardiology ok with d/c today, out pt stress test planned per cardiology d/c planning 22 min Vitals Vitals Vital Signs Date Time Temp Pulse Resp B/P (MAP) Pulse Ox O2 Delivery O2 Flow Rate FiO2 07/29/19 03:30 97.7 85 18 126/70 (88) 94 Room Air 97.7 Physical Exam General: Alert, Oriented X3, Cooperative, No acute distress Lungs: Clear Abdomen: Normal bowel sounds, Soft, No tenderness, No hepatosplenomegaly, No masses Extremities: No clubbing, No cyanosis, No edema, Normal pulses, No tenderness/swelling Skin: No rashes, No breakdown, No significant lesion Labs LABS Laboratory Tests Test 07/28/19 20:57 07/29/19 04:30 Glucose (Fingerstick) 317 mg/dL (70-99) White Blood Count 6.7 x10^3/uL (4.0-11.0) Red Blood Count 4.46 x10^6/uL (3.50-5.40) Hemoglobin 13.9 g/dL (12.0-15.5) Hematocrit 41.1 % (36.0-47.0) Mean Corpuscular Volume 92 fL (79-100) Mean Corpuscular Hemoglobin 31 pg (25-35) Mean Corpuscular Hemoglobin Concent 34 g/dL (31-37) Red Cell Distribution Width 13.6 % (11.5-14.5) Platelet Count 176 x10^3/uL (140-400) Neutrophils (%) (Auto) 42 % (31-73) Lymphocytes (%) (Auto) 45 % (24-48) Monocytes (%) (Auto) 8 % (0-9) Eosinophils (%) (Auto) 4 % (0-3) Basophils (%) (Auto) 1 % (0-3) Neutrophils # (Auto) 2.8 x10^3/uL (1.8-7.7) Lymphocytes # (Auto) 3.0 x10^3/uL (1.0-4.8) Monocytes # (Auto) 0.6 x10^3/uL (0.0-1.1) Eosinophils # (Auto) 0.2 x10^3/uL (0.0-0.7) Basophils # (Auto) 0.0 x10^3/uL (0.0-0.2) Prothrombin Time 12.7 SEC (11.7-14.0) Prothromb Time International Ratio 1.0 (0.8-1.1) Sodium Level 144 mmol/L (136-145) Potassium Level 3.9 mmol/L (3.5-5.1) Chloride Level 108 mmol/L (98-107) Carbon Dioxide Level 28 mmol/L (21-32) Anion Gap 8 (6-14) Blood Urea Nitrogen 15 mg/dL (7-20) Creatinine 0.6 mg/dL (0.6-1.0) Estimated GFR (Cockcroft-Gault) 100.3 Glucose Level 195 mg/dL (70-99) Calcium Level 8.6 mg/dL (8.5-10.1) Comment Review of Relevant I have reviewed the following items genesis (where applicable) has been applied. Labs Laboratory Tests Test 07/28/19 20:57 07/29/19 04:30 Glucose (Fingerstick) 317 mg/dL (70-99) White Blood Count 6.7 x10^3/uL (4.0-11.0) Red Blood Count 4.46 x10^6/uL (3.50-5.40) Hemoglobin 13.9 g/dL (12.0-15.5) Hematocrit 41.1 % (36.0-47.0) Mean Corpuscular Volume 92 fL (79-100) Mean Corpuscular Hemoglobin 31 pg (25-35) Mean Corpuscular Hemoglobin Concent 34 g/dL (31-37) Red Cell Distribution Width 13.6 % (11.5-14.5) Platelet Count 176 x10^3/uL (140-400) Neutrophils (%) (Auto) 42 % (31-73) Lymphocytes (%) (Auto) 45 % (24-48) Monocytes (%) (Auto) 8 % (0-9) Eosinophils (%) (Auto) 4 % (0-3) Basophils (%) (Auto) 1 % (0-3) Neutrophils # (Auto) 2.8 x10^3/uL (1.8-7.7) Lymphocytes # (Auto) 3.0 x10^3/uL (1.0-4.8) Monocytes # (Auto) 0.6 x10^3/uL (0.0-1.1) Eosinophils # (Auto) 0.2 x10^3/uL (0.0-0.7) Basophils # (Auto) 0.0 x10^3/uL (0.0-0.2) Prothrombin Time 12.7 SEC (11.7-14.0) Prothromb Time International Ratio 1.0 (0.8-1.1) Sodium Level 144 mmol/L (136-145) Potassium Level 3.9 mmol/L (3.5-5.1) Chloride Level 108 mmol/L (98-107) Carbon Dioxide Level 28 mmol/L (21-32) Anion Gap 8 (6-14) Blood Urea Nitrogen 15 mg/dL (7-20) Creatinine 0.6 mg/dL (0.6-1.0) Estimated GFR (Cockcroft-Gault) 100.3 Glucose Level 195 mg/dL (70-99) Calcium Level 8.6 mg/dL (8.5-10.1) Laboratory Tests Test 07/28/19 20:57 07/29/19 04:30 Glucose (Fingerstick) 317 mg/dL (70-99) White Blood Count 6.7 x10^3/uL (4.0-11.0) Red Blood Count 4.46 x10^6/uL (3.50-5.40) Hemoglobin 13.9 g/dL (12.0-15.5) Hematocrit 41.1 % (36.0-47.0) Mean Corpuscular Volume 92 fL (79-100) Mean Corpuscular Hemoglobin 31 pg (25-35) Mean Corpuscular Hemoglobin Concent 34 g/dL (31-37) Red Cell Distribution Width 13.6 % (11.5-14.5) Platelet Count 176 x10^3/uL (140-400) Neutrophils (%) (Auto) 42 % (31-73) Lymphocytes (%) (Auto) 45 % (24-48) Monocytes (%) (Auto) 8 % (0-9) Eosinophils (%) (Auto) 4 % (0-3) Basophils (%) (Auto) 1 % (0-3) Neutrophils # (Auto) 2.8 x10^3/uL (1.8-7.7) Lymphocytes # (Auto) 3.0 x10^3/uL (1.0-4.8) Monocytes # (Auto) 0.6 x10^3/uL (0.0-1.1) Eosinophils # (Auto) 0.2 x10^3/uL (0.0-0.7) Basophils # (Auto) 0.0 x10^3/uL (0.0-0.2) Prothrombin Time 12.7 SEC (11.7-14.0) Prothromb Time International Ratio 1.0 (0.8-1.1) Sodium Level 144 mmol/L (136-145) Potassium Level 3.9 mmol/L (3.5-5.1) Chloride Level 108 mmol/L (98-107) Carbon Dioxide Level 28 mmol/L (21-32) Anion Gap 8 (6-14) Blood Urea Nitrogen 15 mg/dL (7-20) Creatinine 0.6 mg/dL (0.6-1.0) Estimated GFR (Cockcroft-Gault) 100.3 Glucose Level 195 mg/dL (70-99) Calcium Level 8.6 mg/dL (8.5-10.1) Medications Current Medications Ondansetron HCl (Zofran) 4 mg PRN Q6HRS PRN IV NAUSEA/VOMITING; Start 07/28/19 at 19:00 Al Hydroxide/Mg Hydroxide (Mylanta Plus Xs) 30 ml PRN Q3HRS PRN PO HEARTBURN / GAS; Start 07/28/19 at 19:00 Calcium Carbonate/ Glycine (Tums) 500 mg PRN Q3HRS PRN PO UPSET STOMACH; Start 07/28/19 at 19:00 Zolpidem Tartrate (Ambien) 5 mg PRN QHS PRN PO INSOMNIA, MAY REPEAT IN 1HR; Start 07/28/19 at 19:00 Oxycodone HCl (Roxicodone) 5 mg PRN Q3HRS PRN PO BREAKTHROUGH PAIN; Start 07/28/19 at 19:00 Morphine Sulfate (Morphine Sulfate) 1 mg PRN Q1HR PRN IV MODERATE PAIN; Start 07/28/19 at 19:00 Acetaminophen (Tylenol) 650 mg PRN Q6HRS PRN PO Headaches, Temp > 101.5F; Start 07/28/19 at 19:00 Ibuprofen (Motrin) 400 mg PRN Q6HRS PRN PO MILD PAIN 1-3; Start 07/28/19 at 19:00 Docusate Sodium (Colace) 100 mg BID PO ; Start 07/28/19 at 21:00 Magnesium Hydroxide (Milk Of Magnesia) 2,400 mg PRN Q12HR PRN PO CONSTIPATION; Start 07/28/19 at 19:00 Bisacodyl (Dulcolax Supp) 10 mg PRN DAILY PRN NE CONSTIPATION; Start 07/28/19 at 19:00 Nitroglycerin (Nitrostat) 0.4 mg PRN Q5MIN PRN SL CHEST PAIN; Start 07/28/19 at 19:00 Labetalol HCl (Normodyne Iv Push) 10 mg PRN Q2HR PRN IVP HYPERTENSION; Start 07/28/19 at 19:00 Hydralazine HCl (Apresoline Inj) 10 mg PRN Q4HRS PRN IVP ELEVATED BP, 2ND CHOICE; Start 07/28/19 at 19:00 Tramadol HCl (Ultram) 50 mg PRN Q6HRS PRN PO MODERATE PAIN; Start 07/28/19 at 19:00 Fentanyl Citrate (Fentanyl 2ml Vial) 50 mcg PRN Q2HR PRN IVP SEVERE PAIN Last administered on 07/28/19at 20:16; Start 07/28/19 at 19:00 Aspirin (Ecotrin) 325 mg DAILYWBKFT PO ; Start 07/29/19 at 08:00 Atorvastatin Calcium (Lipitor) 20 mg HS PO Last administered on 07/28/19at 20:16; Start 07/28/19 at 21:00 Clopidogrel Bisulfate (Plavix) 75 mg DAILYWBKFT PO ; Start 07/29/19 at 08:00 Acetaminophen/ Hydrocodone Bitart (Lortab 5/325) 1 tab PRN Q4HRS PRN PO SEVERE PAIN Last administered on 07/28/19at 20:17; Start 07/28/19 at 19:00 Losartan Potassium (Cozaar) 100 mg DAILY PO ; Start 07/29/19 at 09:00 Metoprolol Tartrate (Lopressor) 25 mg BID PO Last administered on 07/28/19at 20:18; Start 07/28/19 at 21:00 Clonazepam (KlonoPIN) 1 mg PRN Q12HRS PRN PO ANXIETY / AGITATION Last administered on 07/28/19at 20:17; Start 07/28/19 at 19:15 Insulin Human Lispro (HumaLOG) 20 units TIDWMEALS SQ ; Start 07/29/19 at 08:00 Insulin Glargine (Lantus Syringe) 20 unit QHS SQ Last administered on 07/28/19at 21:07; Start 07/28/19 at 21:00 Insulin Human Lispro (HumaLOG) 0-9 UNITS TIDWMEALS SQ ; Start 07/29/19 at 08:00 Dextrose (Dextrose 50%-Water Syringe) 12.5 gm PRN Q15MIN PRN IV SEE COMMENTS; Start 07/28/19 at 19:00 Influenza Virus Vaccine Quadrival (Afluria Quad 2019-20 (3yr Up) Syringe) 0.5 ml ONCE ONCE VAX IM ; Start 07/29/19 at 09:00; Stop 07/29/19 at 09:01; Status DC Active Scripts Active Lantus Solostar (Insulin Glargine,Hum.rec.anlog) 100 Unit/1 Ml Insuln.pen 20 Unit SQ QHS Hydrocodone-Apap 5-325 (Hydrocodone Bit/Acetaminophen) 1 Tab Tablet 1 Tab PO PRN Q4HRS PRN MDD 1 Cozaar (Losartan Potassium) 50 Mg Tablet 100 Mg PO DAILY MDD 1 Aspirin Ec (Aspirin) 325 Mg Tablet. 325 Mg PO DAILYWBKFT MDD 1 Metoprolol Tartrate 25 Mg Tablet 25 Mg PO BID MDD 1 Clopidogrel (Clopidogrel Bisulfate) 75 Mg Tablet 75 Mg PO DAILYWBKFT MDD 1 Reported Clonazepam 1 Mg Tablet 1 Mg PO PRN Q12HR PRN Novolog Flexpen (Insulin Aspart) 100 Unit/1 Ml Insuln.pen 20 Units SQ TIDWMEALS Atorvastatin Calcium 20 Mg Tablet 20 Mg PO HS Vitals/I & O Vital Sign - Last 24 Hours 07/28/19 07/28/19 07/28/1925/19 20:00 20:16 20:17 20:18 Pulse 86 Resp 20 20 B/P (MAP) 154/79 Pulse Ox 96 96 O2 Delivery Room Air Room Air Room Air 07/28/19 07/28/19 07/28/19 07/28/19 20:27 20:58 21:20 23:16 Temp 97.6 98.1 97.6 98.1 Pulse 98 85 Resp 20 20 20 18 B/P (MAP) 99/59 (72) 116/67 (83) Pulse Ox 96 96 96 93 O2 Delivery Room Air Room Air Room Air Room Air 07/29/19 03:30 Temp 97.7 97.7 Pulse 85 Resp 18 B/P (MAP) 126/70 (88) Pulse Ox 94 O2 Delivery Room Air Intake and Output 07/28/19 07/28/19 07/29/19 15:00 23:00 07:00 Intake Total 240 ml 0 ml Balance 240 ml 0 ml FIFI TRUONG MD Jul 29, 2019 09:03
[2019-07-29 11:00] VITALS: BP 139/74
[2019-07-29] MEDS: METOPROLOL TART IMMED RELEASE 25 MG TABLET. PO SCH (11:23)
[2019-07-29] MEDS: DOCUSATE SODIUM 100 MG CAPSULE. PO SCH (11:24)
[2019-07-29 11:26] VITALS: BP 139/74
--- NOTE | 2019-07-29 11:46 | PDOC2 ---
CONSULT Date of Consult Date of Consult DATE: 07/29/19 TIME: 11:46 Reason for Consult Reason for Consult: Headache and facial pain Identification/Chief Complaint Chief Complaint Dr. Georges Source Source: Chart review, Patient History of Present Illness Reason for Visit: 64-year-old female presented with mainly headache and facial pain. She did state that she had some chest discomfort not related to exertion or food intake and unlike the pain she had prior to her angioplasty. She denied any orthopnea/PND, palpitations or syncope. Past Medical History Cardiovascular: No pertinent hx, CAD, HTN, Hyperlipidemia Pulmonary: No pertinent hx GI: No pertinent hx Heme/Onc: No pertinent hx Hepatobiliary: No pertinent hx Psych: No pertinent hx, Anxiety Musculoskeletal: Osteoarthritis Rheumatologic: No pertinent hx Infectious disease: No pertinent hx Renal/: No pertinent hx Endocrine: No pertinent hx, Diabetes Past Surgical History Past Surgical History: Other (PCI x 1), No pertinent history Family History Family History: Chronic Bronchitis, Hypertension Social History No ALCOHOL: none Drugs: None Current Medications Current Medications Current Medications Ondansetron HCl (Zofran) 4 mg PRN Q6HRS PRN IV NAUSEA/VOMITING; Start 07/28/19 at 19:00 Al Hydroxide/Mg Hydroxide (Mylanta Plus Xs) 30 ml PRN Q3HRS PRN PO HEARTBURN / GAS; Start 07/28/19 at 19:00 Calcium Carbonate/ Glycine (Tums) 500 mg PRN Q3HRS PRN PO UPSET STOMACH; Start 07/28/19 at 19:00 Zolpidem Tartrate (Ambien) 5 mg PRN QHS PRN PO INSOMNIA, MAY REPEAT IN 1HR; Start 07/28/19 at 19:00 Oxycodone HCl (Roxicodone) 5 mg PRN Q3HRS PRN PO BREAKTHROUGH PAIN; Start 07/28/19 at 19:00 Morphine Sulfate (Morphine Sulfate) 1 mg PRN Q1HR PRN IV MODERATE PAIN; Start 07/28/19 at 19:00 Acetaminophen (Tylenol) 650 mg PRN Q6HRS PRN PO Headaches, Temp > 101.5F; Start 07/28/19 at 19:00 Ibuprofen (Motrin) 400 mg PRN Q6HRS PRN PO MILD PAIN 1-3; Start 07/28/19 at 19:00 Docusate Sodium (Colace) 100 mg BID PO Last administered on 07/29/19 11:24; Start 07/28/19 at 21:00 Magnesium Hydroxide (Milk Of Magnesia) 2,400 mg PRN Q12HR PRN PO CONSTIPATION; Start 07/28/19 at 19:00 Bisacodyl (Dulcolax Supp) 10 mg PRN DAILY PRN [place] CONSTIPATION; Start 07/28/19 at 19:00 Nitroglycerin (Nitrostat) 0.4 mg PRN Q5MIN PRN SL CHEST PAIN; Start 07/28/19 a t 19:00 Labetalol HCl (Normodyne Iv Push) 10 mg PRN Q2HR PRN IVP HYPERTENSION; Start 07/28/19 at 19:00 Hydralazine HCl (Apresoline Inj) 10 mg PRN Q4HRS PRN IVP ELEVATED BP, 2ND CHOICE; Start 07/28/19 at 19:00 Tramadol HCl (Ultram) 50 mg PRN Q6HRS PRN PO MODERATE PAIN; Start 07/28/19 at 19:00 Fentanyl Citrate (Fentanyl 2ml Vial) 50 mcg PRN Q2HR PRN IVP SEVERE PAIN Last administered on 07/28/19 20:16; Start 07/28/19 at 19:00 Aspirin (Ecotrin) 325 mg DAILYWBKFT PO Last administered on 07/29/19at 11:16; Start 07/29/19 at 08:00 Atorvastatin Calcium (Lipitor) 20 mg HS PO Last administered on 07/28/19at 20:16; Start 07/28/19 at 21:00 Clopidogrel Bisulfate (Plavix) 75 mg DAILYWBKFT PO Last administered on 07/29/19 11:23; Start 07/29/19 at 08:00 Acetaminophen/ Hydrocodone Bitart (Lortab 5/325) 1 tab PRN Q4HRS PRN PO SEVERE PAIN Last administered on 07/28/19 20:17; Start 07/28/19 at 19:00 Losartan Potassium (Cozaar) 100 mg DAILY PO Last administered on 07/29/19 11:26; Start 07/29/19 at 09:00 Metoprolol Tartrate (Lopressor) 25 mg BID PO Last administered on 07/29/19at 11:23; Start 07/28/19 at 21:00 Clonazepam (KlonoPIN) 1 mg PRN Q12HRS PRN PO ANXIETY / AGITATION Last administered on 07/28/19at 20:17; Start 07/28/19 at 19:15 Insulin Human Lispro (HumaLOG) 20 units TIDWMEALS SQ ; Start 07/29/19 at 08:00 Insulin Glargine (Lantus Syringe) 20 unit QHS SQ Last administered on 07/28/19at 21:07; Start 07/28/19 at 21:00 Insulin Human Lispro (HumaLOG) 0-9 UNITS TIDWMEALS SQ ; Start 07/29/19 at 08:00 Dextrose (Dextrose 50%-Water Syringe) 12.5 gm PRN Q15MIN PRN IV SEE COMMENTS; Start 07/28/19 at 19:00 Influenza Virus Vaccine Quadrival (Afluria Quad 2019-20 (3yr Up) Syringe) 0.5 ml ONCE ONCE VAX IM ; Start 07/29/19 at 09:00; Stop 07/29/19 at 09:01; Status DC Active Scripts Active Lantus Solostar (Insulin Glargine,Hum.rec.anlog) 100 Unit/1 Ml Insuln.pen 20 Unit SQ QHS Hydrocodone-Apap 5-325 (Hydrocodone Bit/Acetaminophen) 1 Tab Tablet 1 Tab PO PRN Q4HRS PRN MDD 1 Cozaar (Losartan Potassium) 50 Mg Tablet 100 Mg PO DAILY MDD 1 Aspirin Ec (Aspirin) 325 Mg Tablet.dr 325 Mg PO DAILYWBKFT MDD 1 Metoprolol Tartrate 25 Mg Tablet 25 Mg PO BID MDD 1 Clopidogrel (Clopidogrel Bisulfate) 75 Mg Tablet 75 Mg PO DAILYWBKFT MDD 1 Reported Clonazepam 1 Mg Tablet 1 Mg PO PRN Q12HR PRN Novolog Flexpen (Insulin Aspart) 100 Unit/1 Ml Insuln.pen 20 Units SQ TIDWMEALS Atorvastatin Calcium 20 Mg Tablet 20 Mg PO HS Allergies Allergies: Coded Allergies: prednisone (Verified Allergy, Severe, 01/24/19) Penicillins (Verified Allergy, Intermediate, HIVES, ITCHING, 07/14/19) cephalexin (Verified Allergy, Intermediate, HIVES, ITCHING, 07/14/19) diphenhydramine (Verified Allergy, Intermediate, 07/14/19) I S O L A T I O N *CONTACT* (Verified Allergy, Unknown, 01/25/19) mrsa ROS PSYCHOLOGICAL ROS: No: Hallucinations Eyes: No Loss of vision HEENT: YES: Heacaches, Other (facial pain); No: Epistaxis Respiratory: No: Hemoptysis, Shortness of breath Cardiovascular: yes Chest Pain Genitourinary: No Hematuria Neurological: No Seizures Skin: No Rash Physical Exam General: Alert, Oriented X3 HEENT: Atraumatic, PERRLA Lungs: Clear to auscultation Heart: Regular rate Abdomen: Soft, No tenderness Extremities: No edema Psych/Mental Status: Mood NL Vitals VITALS Vital Signs Date Time Temp Pulse Resp B/P (MAP) Pulse Ox O2 Delivery O2 Flow Rate FiO2 07/29/19 11:26 89 139/74 07/29/19 03:30 97.7 18 94 Room Air 97.7 Labs Labs Laboratory Tests Test 07/28/19 20:57 07/29/19 04:30 Glucose (Fingerstick) 317 mg/dL (70-99) White Blood Count 6.7 x10^3/uL (4.0-11.0) Red Blood Count 4.46 x10^6/uL (3.50-5.40) Hemoglobin 13.9 g/dL (12.0-15.5) Hematocrit 41.1 % (36.0-47.0) Mean Corpuscular Volume 92 fL (79-100) Mean Corpuscular Hemoglobin 31 pg (25-35) Mean Corpuscular Hemoglobin Concent 34 g/dL (31-37) Red Cell Distribution Width 13.6 % (11.5-14.5) Platelet Count 176 x10^3/uL (140-400) Neutrophils (%) (Auto) 42 % (31-73) Lymphocytes (%) (Auto) 45 % (24-48) Monocytes (%) (Auto) 8 % (0-9) Eosinophils (%) (Auto) 4 % (0-3) Basophils (%) (Auto) 1 % (0-3) Neutrophils # (Auto) 2.8 x10^3/uL (1.8-7.7) Lymphocytes # (Auto) 3.0 x10^3/uL (1.0-4.8) Monocytes # (Auto) 0.6 x10^3/uL (0.0-1.1) Eosinophils # (Auto) 0.2 x10^3/uL (0.0-0.7) Basophils # (Auto) 0.0 x10^3/uL (0.0-0.2) Prothrombin Time 12.7 SEC (11.7-14.0) Prothromb Time International Ratio 1.0 (0.8-1.1) Sodium Level 144 mmol/L (136-145) Potassium Level 3.9 mmol/L (3.5-5.1) Chloride Level 108 mmol/L (98-107) Carbon Dioxide Level 28 mmol/L (21-32) Anion Gap 8 (6-14) Blood Urea Nitrogen 15 mg/dL (7-20) Creatinine 0.6 mg/dL (0.6-1.0) Estimated GFR (Cockcroft-Gault) 100.3 Glucose Level 195 mg/dL (70-99) Calcium Level 8.6 mg/dL (8.5-10.1) Troponin I Quantitative 0.051 ng/mL (0.000-0.055) Laboratory Tests Test 07/28/19 20:57 07/29/19 04:30 Glucose (Fingerstick) 317 mg/dL (70-99) White Blood Count 6.7 x10^3/uL (4.0-11.0) Red Blood Count 4.46 x10^6/uL (3.50-5.40) Hemoglobin 13.9 g/dL (12.0-15.5) Hematocrit 41.1 % (36.0-47.0) Mean Corpuscular Volume 92 fL (79-100) Mean Corpuscular Hemoglobin 31 pg (25-35) Mean Corpuscular Hemoglobin Concent 34 g/dL (31-37) Red Cell Distribution Width 13.6 % (11.5-14.5) Platelet Count 176 x10^3/uL (140-400) Neutrophils (%) (Auto) 42 % (31-73) Lymphocytes (%) (Auto) 45 % (24-48) Monocytes (%) (Auto) 8 % (0-9) Eosinophils (%) (Auto) 4 % (0-3) Basophils (%) (Auto) 1 % (0-3) Neutrophils # (Auto) 2.8 x10^3/uL (1.8-7.7) Lymphocytes # (Auto) 3.0 x10^3/uL (1.0-4.8) Monocytes # (Auto) 0.6 x10^3/uL (0.0-1.1) Eosinophils # (Auto) 0.2 x10^3/uL (0.0-0.7) Basophils # (Auto) 0.0 x10^3/uL (0.0-0.2) Prothrombin Time 12.7 SEC (11.7-14.0) Prothromb Time International Ratio 1.0 (0.8-1.1) Sodium Level 144 mmol/L (136-145) Potassium Level 3.9 mmol/L (3.5-5.1) Chloride Level 108 mmol/L (98-107) Carbon Dioxide Level 28 mmol/L (21-32) Anion Gap 8 (6-14) Blood Urea Nitrogen 15 mg/dL (7-20) Creatinine 0.6 mg/dL (0.6-1.0) Estimated GFR (Cockcroft-Gault) 100.3 Glucose Level 195 mg/dL (70-99) Calcium Level 8.6 mg/dL (8.5-10.1) Troponin I Quantitative 0.051 ng/mL (0.000-0.055) Assessment/Plan Assessment/Plan 1. Headache and facial pain, could be secondary to sinusitis. Treat per primary team. 2. Chest pain with atypical features. Patient has history of CAD and had undergone PCI/ANT to dominant LCx and PTCA to OM in January 2019. Left ventricle systolic function was normal on 2-D echo at that time. Myocardial infarction ruled out. We will consider outpatient ischemic evaluation with Lexiscan nuclear stress test. 3. Hypertension: better controlled. 4. Hyperlipidemia: Statins 5. Diabetes mellitus type 2: Treat per IM 6. COPD: Clinically stable LINDSAY SRINIVASAN MD Jul 29, 2019 11:46
--- NOTE | 2019-07-29 14:30 | PDOC3 ---
Discharge Summary Date of Admission: Jul 28, 2019 Date of Discharge: Jul 29, 2019 Follow-Up: 3-5 days Admitting Diagnosis comment: discharge dx Chest pain Trop 0/.03 - cushings legends Obesity HTN, DM 2, lipids etc - chronic stable 1 CAD indwelling stent PLAN: CVC bed Cards, trend CE Resume home meds NPO post MN FULL CODE cardiology ok with d/c today, out pt stress test planned per cardiology d/c planning 22 min Vitals Vitals Vital Signs Date Time Temp Pulse Resp B/P (MAP) Pulse Ox O2 Delivery O2 Flow Rate FiO2 07/29/19 03:30 97.7 85 18 126/70 (88) 94 Room Air 97.7 Physical Exam General: Alert, Oriented X3, Cooperative, No acute distress Lungs: Clear Abdomen: Normal bowel sounds, Soft, No tenderness, No hepatosplenomegaly, No masses Extremities: No clubbing, No cyanosis, No edema, Normal pulses, No tenderness/swelling Skin: No rashes, No breakdown, No significant lesion Brief Hospital Course Ms. Mccullough is a 64 old [sex] who presented with [chest pain ] CONDITION AT DISCHARGE: Improved Discharge Medications Current Medications Ondansetron HCl (Zofran) 4 mg PRN Q6HRS PRN IV NAUSEA/VOMITING; Start 07/28/19 at 19:00 Al Hydroxide/Mg Hydroxide (Mylanta Plus Xs) 30 ml PRN Q3HRS PRN PO HEARTBURN / GAS; Start 07/28/19 at 19:00 Calcium Carbonate/ Glycine (Tums) 500 mg PRN Q3HRS PRN PO UPSET STOMACH; Start 07/28/19 at 19:00 Zolpidem Tartrate (Ambien) 5 mg PRN QHS PRN PO INSOMNIA, MAY REPEAT IN 1HR; Start 07/28/19 at 19:00 Oxycodone HCl (Roxicodone) 5 mg PRN Q3HRS PRN PO BREAKTHROUGH PAIN; Start 07/28/19 at 19:00 Morphine Sulfate (Morphine Sulfate) 1 mg PRN Q1HR PRN IV MODERATE PAIN; Start 07/28/19 at 19:00 Acetaminophen (Tylenol) 650 mg PRN Q6HRS PRN PO Headaches, Temp > 101.5F; Start 07/28/19 at 19:00 Ibuprofen (Motrin) 400 mg PRN Q6HRS PRN PO MILD PAIN 1-3; Start 07/28/19 at 19:00 Docusate Sodium (Colace) 100 mg BID PO Last administered on 07/29/19at 11:24; Start 07/28/19 at 21:00 Magnesium Hydroxide (Milk Of Magnesia) 2,400 mg PRN Q12HR PRN PO CONSTIPATION; Start 07/28/19 at 19:00 Bisacodyl (Dulcolax Supp) 10 mg PRN DAILY PRN [place] CONSTIPATION; Start 07/28/19 at 19:00 Nitroglycerin (Nitrostat) 0.4 mg PRN Q5MIN PRN SL CHEST PAIN; Start 07/28/19 at 19:00 Labetalol HCl (Normodyne Iv Push) 10 mg PRN Q2HR PRN IVP HYPERTENSION; Start 07/28/19 at 19:00 Hydralazine HCl (Apresoline Inj) 10 mg PRN Q4HRS PRN IVP ELEVATED BP, 2ND CHOICE; Start 07/28/19 at 19:00 Tramadol HCl (Ultram) 50 mg PRN Q6HRS PRN PO MODERATE PAIN; Start 07/28/19 at 19:00 Fentanyl Citrate (Fentanyl 2ml Vial) 50 mcg PRN Q2HR PRN IVP SEVERE PAIN Last administered on 07/28/19 20:16; Start 07/28/19 at 19:00 Aspirin (Ecotrin) 325 mg DAILYWBKFT PO Last administered on 07/29/19at 11:16; Start 07/29/19 at 08:00 Atorvastatin Calcium (Lipitor) 20 mg HS PO Last administered on 07/28/19at 20:16; Start 07/28/19 at 21:00 Clopidogrel Bisulfate (Plavix) 75 mg DAILYWBKFT PO Last administered on 07/29/19at 11:23; Start 07/29/19 at 08:00 Acetaminophen/ Hydrocodone Bitart (Lortab 5/325) 1 tab PRN Q4HRS PRN PO SEVERE PAIN Last administered on 07/28/19at 20:17; Start 07/28/19 at 19:00 Losartan Potassium (Cozaar) 100 mg DAILY PO Last administered on 07/29/19at 11:26; Start 07/29/19 at 09:00 Metoprolol Tartrate (Lopressor) 25 mg BID PO Last administered on 07/29/19at 11:23; Start 07/28/19 at 21:00 Clonazepam (KlonoPIN) 1 mg PRN Q12HRS PRN PO ANXIETY / AGITATION Last admini stered on 07/28/19at 20:17; Start 07/28/19 at 19:15 Insulin Human Lispro (HumaLOG) 20 units TIDWMEALS SQ Last administered on 07/29/19at 12:04; Start 07/29/19 at 08:00 Insulin Glargine (Lantus Syringe) 20 unit QHS SQ Last administered on 07/28/19at 21:07; Start 07/28/19 at 21:00 Insulin Human Lispro (HumaLOG) 0-9 UNITS TIDWMEALS SQ Last administered on 07/29/19at 12:05; Start 07/29/19 at 08:00 Dextrose (Dextrose 50%-Water Syringe) 12.5 gm PRN Q15MIN PRN IV SEE COMMENTS; Start 07/28/19 at 19:00 Influenza Virus Vaccine Quadrival (Afluria Quad 2019-20 (3yr Up) Syringe) 0.5 ml ONCE ONCE VAX IM ; Start 07/29/19 at 09:00; Stop 07/29/19 at 13:24; Status DC Active Scripts Active Lantus Solostar (Insulin Glargine,Hum.rec.anlog) 100 Unit/1 Ml Insuln.pen 20 Unit SQ QHS Hydrocodone-Apap 5-325 (Hydrocodone Bit/Acetaminophen) 1 Tab Tablet 1 Tab PO PRN Q4HRS PRN MDD 1 Cozaar (Losartan Potassium) 50 Mg Tablet 100 Mg PO DAILY MDD 1 Aspirin Ec (Aspirin) 325 Mg Tablet.dr 325 Mg PO DAILYWBKFT MDD 1 Metoprolol Tartrate 25 Mg Tablet 25 Mg PO BID MDD 1 Clopidogrel (Clopidogrel Bisulfate) 75 Mg Tablet 75 Mg PO DAILYWBKFT MDD 1 Reported Clonazepam 1 Mg Tablet 1 Mg PO PRN Q12HR PRN Novolog Flexpen (Insulin Aspart) 100 Unit/1 Ml Insuln.pen 20 Units SQ TIDWMEALS Atorvastatin Calcium 20 Mg Tablet 20 Mg PO HS Vital Signs Vital Signs Date Time Temp Pulse Resp B/P (MAP) Pulse Ox O2 Delivery O2 Flow Rate FiO2 07/29/19 11:26 89 139/74 07/29/19 03:30 97.7 18 94 Room Air 97.7 Labs Laboratory Tests Test 07/28/19 20:57 07/29/19 04:30 07/29/19 11:37 Glucose (Fingerstick) 317 mg/dL (70-99) 196 mg/dL (70-99) White Blood Count 6.7 x10^3/uL (4.0-11.0) Red Blood Count 4.46 x10^6/uL (3.50-5.40) Hemoglobin 13.9 g/dL (12.0-15.5) Hematocrit 41.1 % (36.0-47.0) Mean Corpuscular Volume 92 fL (79-100) Mean Corpuscular Hemoglobin 31 pg (25-35) Mean Corpuscular Hemoglobin Concent 34 g/dL (31-37) Red Cell Distribution Width 13.6 % (11.5-14.5) Platelet Count 176 x10^3/uL (140-400) Neutrophils (%) (Auto) 42 % (31-73) Lymphocytes (%) (Auto) 45 % (24-48) Monocytes (%) (Auto) 8 % (0-9) Eosinophils (%) (Auto) 4 % (0-3) Basophils (%) (Auto) 1 % (0-3) Neutrophils # (Auto) 2.8 x10^3/uL (1.8-7.7) Lymphocytes # (Auto) 3.0 x10^3/uL (1.0-4.8) Monocytes # (Auto) 0.6 x10^3/uL (0.0-1.1) Eosinophils # (Auto) 0.2 x10^3/uL (0.0-0.7) Basophils # (Auto) 0.0 x10^3/uL (0.0-0.2) Prothrombin Time 12.7 SEC (11.7-14.0) Prothromb Time International Ratio 1.0 (0.8-1.1) Sodium Level 144 mmol/L (136-145) Potassium Level 3.9 mmol/L (3.5-5.1) Chloride Level 108 mmol/L (98-107) Carbon Dioxide Level 28 mmol/L (21-32) Anion Gap 8 (6-14) Blood Urea Nitrogen 15 mg/dL (7-20) Creatinine 0.6 mg/dL (0.6-1.0) Estimated GFR (Cockcroft-Gault) 100.3 Glucose Level 195 mg/dL (70-99) Calcium Level 8.6 mg/dL (8.5-10.1) Troponin I Quantitative 0.051 ng/mL (0.000-0.055) Laboratory Tests Test 07/28/19 20:57 07/29/19 04:30 07/29/19 11:37 Glucose (Fingerstick) 317 mg/dL (70-99) 196 mg/dL (70-99) White Blood Count 6.7 x10^3/uL (4.0-11.0) Red Blood Count 4.46 x10^6/uL (3.50-5.40) Hemoglobin 13.9 g/dL (12.0-15.5) Hematocrit 41.1 % (36.0-47.0) Mean Corpuscular Volume 92 fL (79-100) Mean Corpuscular Hemoglobin 31 pg (25-35) Mean Corpuscular Hemoglobin Concent 34 g/dL (31-37) Red Cell Distribution Width 13.6 % (11.5-14.5) Platelet Count 176 x10^3/uL (140-400) Neutrophils (%) (Auto) 42 % (31-73) Lymphocytes (%) (Auto) 45 % (24-48) Monocytes (%) (Auto) 8 % (0-9) Eosinophils (%) (Auto) 4 % (0-3) Basophils (%) (Auto) 1 % (0-3) Neutrophils # (Auto) 2.8 x10^3/uL (1.8-7.7) Lymphocytes # (Auto) 3.0 x10^3/uL (1.0-4.8) Monocytes # (Auto) 0.6 x10^3/uL (0.0-1.1) Eosinophils # (Auto) 0.2 x10^3/uL (0.0-0.7) Basophils # (Auto) 0.0 x10^3/uL (0.0-0.2) Prothrombin Time 12.7 SEC (11.7-14.0) Prothromb Time International Ratio 1.0 (0.8-1.1) Sodium Level 144 mmol/L (136-145) Potassium Level 3.9 mmol/L (3.5-5.1) Chloride Level 108 mmol/L (98-107) Carbon Dioxide Level 28 mmol/L (21-32) Anion Gap 8 (6-14) Blood Urea Nitrogen 15 mg/dL (7-20) Creatinine 0.6 mg/dL (0.6-1.0) Estimated GFR (Cockcroft-Gault) 100.3 Glucose Level 195 mg/dL (70-99) Calcium Level 8.6 mg/dL (8.5-10.1) Troponin I Quantitative 0.051 ng/mL (0.000-0.055) Allergies Allergies Coded Allergies Type Severity Reaction Last Updated Verified prednisone Allergy Severe 01/24/19 Yes Penicillins Allergy Intermediate HIVES, ITCHING 07/14/19 Yes cephalexin Allergy Intermediate HIVES, ITCHING 07/14/19 Yes diphenhydramine Allergy Intermediate 07/14/19 Yes I S O L A T I O N *CONTACT* Allergy Unknown 01/25/19 Yes Disposition/Orders: D/C to Home Patient Instructions d/c planning 22 min FIFI TRUONG MD Jul 29, 2019 14:30
[2019-07-29] MEDS ORDERED: CALC200T23 PO (14:33)
[2019-07-29] MEDS ORDERED: ACET325T9 PO (14:33)
[2019-07-29] MEDS ORDERED: NITR0.4T24 SL (14:33)
[2019-07-29] MEDS ORDERED: IBUP-1027 PO (14:33)
[2019-07-29] MEDS ORDERED: DOCU100C28 PO (14:33)
--- NOTE | 2019-07-29 14:35 | DISCH ---
DISCHARGE INSTRUCTIONS Condition on Discharge Condition on Discharge: Stable Activity After Discharge Activity Instructions for Disc: Activity as tolerated Lifting Instructions after Dis: Do not lift >10 pounds Driving Instructions after Dis: Do not drive today Weight Bearing Status after Di: No restrictions Diet after Discharge Diet after Discharge: Cardiac, Diabetic No Calorie Level Diet Texture: Regular Liquid Texture: Thin Liquid Swallowing Supervision: None needed Checks after Discharge Checks after discharge: Check blood press - daily, Check blood sugar, ac/hs Contacting the DR. after DC Call your doctor for: If your condition worsens Treatment/Equipment after DC Adaptive Equipment Issued: None FIFI TRUONG MD Jul 29, 2019 14:35
[2019-07-30 03:12] LABS: HEMOGLOBIN A1C 9.3 % (4.8-5.6)
== END 2019-07-29 16:30 | disposition home or self-care (01) | DRG 392 ==
LOC: 2 NORTH 18:45
PROVIDERS: ADMIT Internal Medicine; ATTEND Internal Medicine
DX: K21.9 Gastro-esophageal reflux disease without esophagitis (principal); E11.9 Type 2 diabetes mellitus without complications; E66.9 Obesity, unspecified; E78.5 Hyperlipidemia, unspecified; I10 Essential (primary) hypertension; M19.90 Unspecified osteoarthritis, unspecified site; I25.10 Atherosclerotic heart disease of native coronary artery without angina pectoris; J44.9 Chronic obstructive pulmonary disease, unspecified; Z82.49 Family history of ischemic heart disease and other diseases of the circulatory system; Z82.5 Family history of asthma and other chronic lower respiratory diseases; Z68.33 Body mass index [BMI] 33.0-33.9, adult; Z88.0 Allergy status to penicillin; Z88.8 Allergy status to other drugs, medicaments and biological substances; Z79.899 Other long term (current) drug therapy; J32.9 Chronic sinusitis, unspecified
CPT/HCPCS: 36415; 80048; 82962; 83036; 84484; 85025; 85610; J1815; J3010; G0378